=== PATIENT | male | born 1995 | race Caucasian/White ===

== ENCOUNTER 2017-02-16 20:22 | Inpatient (IN) | payer OTHER ==
[~2017-02-16] VITALS: Ht 175.3 cm; Wt 61.2 kg
[~2017-02-16 20:22] MED LIST: BUPR-51 PO; BUPR300T54 PO; EMTR1TAB12 PO; Fluoxetine Hcl PO; Gabapentin PO; HYDR-3895 PO; QUET200T PO
--- NOTE | 2017-02-17 00:50 | NUR ---
ADMISSION Patient is a 21-year old, male, admitted and escorted by [facility] at 0045 to unit. Patient lives in an apartment be herself in [place], [place]. Pt is originally from [place]. Skin check done, no open skin noted. No edema noted. Pt is ambulatory with steady gait. Pt stands 5'9" and weighs 135 pounds per standing scale. Vital signs are as follows: BP-97/48, T-98.3, P-71, RR-18 and SPO2 on EY=713%. Patient is AAOx4 and with no anxiety noted at this time. Lung sounds clear bilaterally upon auscultation. No cough noted and bowel sounds are present on all quadrants. PERRLA and pupils are 5 mm upon visual check. Pt reports being allergic to Naloxone, Laundry Detergent, on Regular Diet and is Full Code. Pt denies any seizure history. Per pt, withdrawal symptoms are nausea and vomiting, runny nose, sweats, chills, tremors, yawning, anxiety, depression, goosebumps Substance history as follows: 1) Heroin: Per pt, started at age 20 and for the past 2 weeks was using 1.5 to 2 gms via IV daily. Last use was 02/15/2017 at 2000, 2 gms IV. 2) Xanax: Per pt, started at age 16 and for the past 5 years was using 22 gms PO daily on average. Per pt, he was trying to cut down on taking Xanax and last use was on 01/26/2017, 10 PO. 3) Methamphetamine: Per pt, started at age17 and for the past 2 weeks was using 3 gms via IV daily. Last use was 02/15/2017 at 2000. 4) Cannabis: Per pt, started at age 16 and for the past 5 years was using 1 joint smoked weekly on average. Last use was 02/15/2017, 1 joint. Patient verbalized the he does not drink alcohol. Patient informed PMHx of Anxiety, Depression, ADHD and 1 Suicide Attempt in 2013. No Suicidal Ideation nor Homicidal Ideation at this time. Suicide Risk Lethality Assessment was done. No PCP nor Psych MD per pt. Home medications mentioned were reconciled. Treatment history as follows: 1) [facility] 01/13/2017 to 01/26/2017 2) [facility] 12/30/2016, went AMA 3) [facility] 10/09/2016 to 11/29/2016 4) [facility] 11/06/2016 to 11/09/2016 5) [facility] (05/2016 and 08/2016) and [facility] 08/2016 6) [facility] 01/2016 Patient reports smoking cigarettes, specifically Newports, about 1 pack daily. Oriented patient to room and instructed with the use of the call light, placed within reach. Fall, universal, seizure and safety precautions implemented. Kept patient warm, dry and comfortable. No c/o significant pain at this time All needs met. Information relayed to Dr. Potter. Patient refused Flu and Pneumonia vaccines despite explanation of risks and benefits. COWS=5, CIWA=6. Will continue to monitor.
[2017-02-17 01:00] VITALS: BP 97/48
[2017-02-17] MEDS ORDERED: SERT100T PO (01:19)
[2017-02-17] MEDS ORDERED: BUPR300T52 PO (01:19)
[2017-02-17] MEDS ORDERED: QUET100T PO (01:19)
[2017-02-17] MEDS ORDERED: MAG HYDROX/AL HYDROX/SIMETH 30 ML LIQUID UDC PO PRN (02:15)
[2017-02-17] MEDS ORDERED: MAGNESIUM HYDROXIDE 30 ML LIQUID UDC PO PRN (02:15)
[2017-02-17] MEDS ORDERED: BUPRENORPHINE HCL 2 MG TAB.SUBL SL PRN (02:15)
[2017-02-17] MEDS ORDERED: ONDANSETRON ODT 4 MG TAB.RAPDIS SL PRN (02:15)
[2017-02-17] MEDS ORDERED: IBUPROFEN 400 MG TABLET PO PRN (02:15)
[2017-02-17] MEDS ORDERED: DICYCLOMINE HCL 20 MG TABLET PO PRN (02:15)
[2017-02-17] MEDS ORDERED: MIRALAX 17 GM POWD.PACK PO PRN (02:15)
[2017-02-17] MEDS ORDERED: LOPERAMIDE HCL 2 MG CAPSULE PO PRN ×2 (02:15)
[2017-02-17] MEDS ORDERED: diphenhydrAMINE 50 MG CAPSULE PO PRN (02:15)
[2017-02-17] MEDS ORDERED: PROMETHAZINE HCL 25 MG/1 ML VIAL IM PRN (02:15)
[2017-02-17 04:00] VITALS: BP 101/52
--- NOTE | 2017-02-17 07:12 | NUR ---
End of Shift Patient is a 21-year old, male, admitted for Opiate and Meth Dependence. Pt reports using Heroin 1.5-2 gms via IV daily and Meth 3 gms daily via IV daily. Pt also reports using Xanax PO, last use was 10 mg on 01/26/2017, and Cannabis via smoking, 1 joint per week on average. With reported PMHx of Anxiety, Depression, ADHD. Also, with history of suicide attempt (one-time) in 2013. No SI/HI reported at this time. Pt is allergic to Naloxone and Laundry Detergent, on Regular Diet and is Full Code. Pt is AAOx4, no anxiety noted at this time. Pt is ambulatory with steady gait and with no skin issues. Fall, universal, seizure and safety prec in place. Call light within reach. Kept pt warm, dry and comfortable. All needs met. Latest COWS=5, slept for 3 hours . Endorsed to AM shift nurse for continuity of care.
--- NOTE | 2017-02-17 07:45 | NUR ---
START OF SHIFT NOTE: Received report from night clerk nurse. Patient is a 21-year old, male, admitted 02-17-17 for Opiate and Meth dependence. Still awaiting urine for UDS. Pt is on prn's only at this time. Pt is alert and oriented X4. Color good, skin warm and dry. Respirations even and unlabored. Safety precautions observed. Call light within reach. Will continue to monitor.
[2017-02-17 08:36] VITALS: BP 100/60
[2017-02-17] MEDS ORDERED: LORAZEPAM 1 MG TABLET PO PRN ×2 (09:30)
[2017-02-17] MEDS: MULTIVITAMINS,THERAPEUTIC TABLET PO SCH (09:30)
--- NOTE | 2017-02-17 09:44 | NUR ---
VSS Discharge papers signed. Addendum: 02/17/17 at 0945 by ONEL LOUIS RN Please disregard note. Made in error.
--- NOTE | 2017-02-17 09:45 | NUR ---
VSS UDS obtained. COWS 6
[2017-02-17 10:53] LABS: *AMPHETAMINE, URINE NEGATIVE (NEGATIVE); *BARBITURATE, URINE POSITIVE (NEGATIVE); *CANNABINOID, URINE POSITIVE (NEGATIVE); *COCCAINE, URINE NEGATIVE (NEGATIVE); *OPIATE, URINE POSITIVE (NEGATIVE); *PHENCYCLIDINE SCREEN,URINE NEGATIVE (NEGATIVE)
[2017-02-17 12:00] VITALS: BP 112/70
[2017-02-17] MEDS: BUPRENORPHINE HCL 2 MG TAB.SUBL SL SCH ×3 (13:08→20:11)
[2017-02-17] MEDS: DIAZEPAM 10 MG TABLET PO SCH ×2 (13:08→20:10)
--- NOTE | 2017-02-17 13:09 | NUR ---
VSS COWS 12 CIWA 9 Pt c/o anxiety, muscle aches, chills. Pt started on a 4 day Subutex and 4 day Valium tapers.
--- NOTE | 2017-02-17 13:11 | NUR ---
Miralax given prn for constipation.
[2017-02-17 15:03] LABS: BASOPHILS % (AUTO) 0.7 % (0.0-2.0); EOSINOPHILS # (AUTO) 0.1 K/uL (0.0-0.7); EOSINOPHILS % (AUTO) 2.5 % (0.0-7.0); HEMATOCRIT 41.8 % (35.0-45.0); HEMOGLOBIN 14.4 g/dL (11.5-15.5); LYMPHOCYTES # (AUTO) 1.5 K/uL (0.8-4.8); LYMPHOCYTES % (AUTO) 36.2 % (20.5-74.5); MEAN CORPUSCULAR HEMOGLOBIN 31.2 uug (27.0-31.0); MEAN CORPUSCULAR HGB CONC 35 g/dL (32.0-37.0); MEAN CORPUSCULAR VOLUME 90.4 fL (77.0-95.0); MONOCYTES # (AUTO) 0.5 K/uL (0.1-1.30); MONOCYTES % (AUTO) 11.3 % (0-11); NEUTROPHILS # (AUTO) 2.2 K/uL (1.8-8.9); NEUTROPHILS % (AUTO) 49.3 % (31.5-64.5); PLATELET COUNT (AUTO) 293 K/uL (150-450); RED BLOOD CELL COUNT(AUTO) 4.63 MIL/uL (3.90-5.30); RED CELL DISTRIBUTION WIDTH 12.3 % (11.5-14.5); WHITE BLOOD COUNT (AUTO) 4.3 K/uL (4.5-14.5)
[2017-02-17 15:11] LABS: ALANINE AMINOTRANSFERASE 21 U/L (16-63); ALBUMIN 4.3 g/dL (3.4-5.0); ALKALINE PHOSPHATASE 103 U/L (50-136); AMYLASE 72 U/L (25-115); ASPARTATE AMINOTRANSFERASE 19 U/L (15-37); BILIRUBIN,TOTAL 0.4 mg/dL (0.2-1.0); CALCIUM 8.9 mg/dL (8.5-10.1); CARBON DIOXIDE 30 mmol/L (21-32); CHLORIDE 105 mmol/L (98-107); CREATININE 0.9 mg/dL (0.6-1.3); GFR 109 mL/min (>60); LIPASE 187 U/L (73-393); MAGNESIUM 2.3 mg/dL (1.8-2.4); POTASSIUM 3.8 mmol/L (3.5-5.1); SODIUM SERUM 142 mmol/L (136-145); TOTAL PROTEIN, SERUM 8.1 g/dL (6.4-8.2); UREA NITROGEN, BLOOD 10 mg/dL (7-18)
[2017-02-17] MEDS: buPROPion XL 150 MG TAB.SR.24H PO SCH (15:19)
[2017-02-17] MEDS: GABAPENTIN 300 MG CAPSULE PO SCH ×2 (15:19→20:09)
[2017-02-17 15:22] LABS: THYROID STIMULATING HORMONE 0.283 mIU/mL (0.358-3.740)
[2017-02-17 15:26] LABS: GLUCOSE 52 mg/dL (74-106)
--- NOTE | 2017-02-17 15:34 | NUR ---
Pt's glucose noted to be 52. Pt asymptomatic. Encouraged to drink juice and eat.
[2017-02-17 15:44] LABS: ETHANOL < 3 MG/DL (0-0)
--- NOTE | 2017-02-17 16:12 | NUR ---
VSS CIWA 9 COWS 6 Pt still with anxiety, sweating and muscle aches.
[2017-02-17 16:15] LABS: HIV-1 p24 ANTIGEN NON REACTIVE (NONREACTIVE); HIV-1/2 ANTIBODY NON REACTIVE (NONREACTIVE)
[2017-02-17 17:21] VITALS: BP 104/58
--- NOTE | 2017-02-17 18:44 | NUR ---
END OF SHIFT NOTE: Report given to microbiology manager nurse . Patient is a 21-year old, male, admitted 02-17-17 for Opiate and Meth dependence. Pt placed on 4 day Valium and 4 day Subutex tapers. Pt is alert and oriented X4. Color good, skin warm and dry. Respirations even and unlabored. Vital signs have remained stable throughout shift. Last COWS 6 CIWA 9 @ 1700 Safety precautions observed. Call light within reach.
[2017-02-17 20:00] VITALS: BP 103/57
--- NOTE | 2017-02-17 20:00 | NUR ---
1999 Patient received awake, alert and just returning back to his room # [id number] [facility]. Gait is steady. Patient responds to nurse's greeting with a smile and " Hi, were you my nurse last time?" Patient's color is pink and his skin is warm, dry and intact. Patient is oriented to person, place, day, date, time and his personal situation. Patient's lung sounds are clear bilaterally and active bowel sounds are noted X 4 abdominal Quads, per auscultation. Patient states that he is eating and taking fluids ad [place] and going to groups since being admitted. Vital signs are: 97.9-84-16 103/57, O2 Sat 99%, COWS 6, CIWA 5. Patient moves all his extremities fully WNL. Patient was admitted early 02/17/17 for: Heroin, Meth, Xanax and Cannabis withdrawal and he is currently on a 4-Day Subutex medication taper and a 4-Day Subutex medication taper, which he is tolerating well so far. Fall/Seizure precautions continue. No requests or complaints offered presently. Bed is locked and in lowest position, bed rails are up X 2 and call light within patient's easy reach.
[2017-02-17] MEDS: QUETIAPINE FUMARATE 200 MG TABLET PO SCH (20:09)
[2017-02-17] MEDS: METHOCARBAMOL 750 MG TABLET PO PRN (20:15)
[2017-02-17] MEDS: ACETAMINOPHEN 325 MG TABLET PO PRN (20:15)
--- NOTE | 2017-02-17 20:15 | NUR ---
PRN MEDICATIONS: Prn Tylenol 650 mg p.o. given for c/o headache and Prn Robaxin 750 mg p.o. given for c/o generalized body aches and pains. 7/10 pain scale.
--- NOTE | 2017-02-17 21:15 | NUR ---
REASSESSMENT PRN MEDICATIONS: Patient is resting quietly. Patient states that medication given to him was effective and he is feeling 'better now'.
[2017-02-18] VITALS: BP 106/66
--- NOTE | 2017-02-18 04:00 | NUR ---
Patient refused V/S, COWS, CIWA to be done at this time.
--- NOTE | 2017-02-18 06:30 | NUR ---
0630 Patient slept a total of 6 hours and he had 1 void and no stools at bathroom. Total intake was 796 ml p.o. Prn medications given noted separately per floor protocol. V/SS afebrile, COWS 6, CIWA 5. Patient is friendly, cooperative and verbally appropriate when awake, though he is guarded and slightly withdrawn with communicating with staff. Patient is presently sleeping soundly with eyes closed and respirations even, unlabored at 14. Patient is in stable condition at this time.
--- NOTE | 2017-02-18 07:46 | NUR ---
BEGINNING OF SHIFT Patient endorsement report received from operations supervisor 2nd shift nurse, all pertinent information discussed. patient is a 21 year old male admitted on 02/17/2017, full code, allergies to: laundry detergent and naloxone, with admitting Dx: bzo/opiate dependence. Patient with substance use history of: heroin 1.5-2 grams iv daily for one year, Xanax 22mg Po daily for 5 years, methamphetamine 3 grams iv daily for 4 years, cannabis 1 joint weekly for 5 years. Patient was placed on a 4 day Valium and 4 day Subutex taper as ordered, Patient received awake, alert and oriented x4, educated regarding plan of care for the day and medication with regimen with good verbal understanding. safety measures in place. call light with in reach, will construes to monitor closely.
[2017-02-18 08:08] VITALS: BP 111/68
[2017-02-18] MEDS: DOCUSATE SODIUM 250 MG CAPSULE PO SCH (08:48)
[2017-02-18] MEDS: buPROPion XL 150 MG TAB.SR.24H PO SCH (08:48)
[2017-02-18] MEDS: GABAPENTIN 300 MG CAPSULE PO SCH ×3 (08:48→21:01)
[2017-02-18] MEDS: MULTIVITAMINS,THERAPEUTIC TABLET PO SCH (08:48)
[2017-02-18] MEDS: DIAZEPAM 5 MG TABLET PO SCH ×4 (08:48→21:01)
[2017-02-18] MEDS ORDERED: TUBERCULIN,PURIF.PROT.DERIV. 5 TU/0.1 ML TEST ID ONE (09:00)
[2017-02-18] MEDS ORDERED: BUPRENORPHINE HCL 2 MG TAB.SUBL SL SCH ×2 (09:00→15:00)
[2017-02-18] MEDS ORDERED: PATIENT MAY USE OWN MED- MD OK PO SCH (09:00)
[2017-02-18] MEDS: METHOCARBAMOL 750 MG TABLET PO PRN ×2 (09:02→21:02)
--- NOTE | 2017-02-18 09:03 | NUR ---
PRN ROBAXIN Patient c/o muscle aches 05/08, administered Robaxin 750mg Po as ordered for muscle aches, will monitor effectiveness.
--- NOTE | 2017-02-18 10:03 | NUR ---
ROBAXIN REASSESSMENT Patient reports medication with some relief, current pain level 2/10 (muscle aches) provided with non pharmacological interventions, will continue to monitor closely.
[2017-02-18] MEDS ORDERED: BUPRENORPHINE HCL 2 MG TAB.SUBL SL ONE (11:00)
[2017-02-18 13:16] VITALS: BP 116/66
[2017-02-18 14:07] LABS: HCV AB <0.1 s/co ratio (0.0-0.9); HEPATITIS B CORE AB, IgM Negative (Negative); HEPATITIS B SURFACE AG Negative (Negative)
[2017-02-18 15:13] VITALS: BP 118/68
[2017-02-18] MEDS: BUPRENORPHINE HCL 2 MG TAB.SUBL SL SCH ×2 (15:20→21:01)
[2017-02-18 16:17] VITALS: BP 116/72
--- NOTE | 2017-02-18 18:56 | NUR ---
END OF SHIFT Patient alert and oriented x4, compliant with therapeutic plan of care, vital signs with in normal limits during shift. Patient continues on Subutex and Valium taper as ordered, well tolerated, no ASE. Patient with admitting Dx: opiate/bzo dependence. 0900 assessment patient presented with:observable moist, mild bone and joint aches, nasal stuffy, nausea with no vomiting, yawning, mild anxiety, mild agitation, and gooseflesh with cow score of: 12 and ciwa score of: 7, patient offered anti-nausea medication and refused. 1300 assessment patient presented with: observable moist, mild bone and joint aches, nasal stuffiness, nausea, yawning, mild anxiety and mild agitation and gooseflesh with cow score of: 10 and ciwa score of: 5; 1700 assessment patient presented with: observable moist, mild bone and joint aches, nasal stuffiness, nausea, yawning, mild anxiety and mild agitation and gooseflesh with cow score of: 10 and ciwa score of: 5. Detox medication at reducing withdrawal symptoms as evident by decrease in cow and ciwa scores. Patient encouraged to attend group therapies/sessions to learn new coping skills to prevent relapse, denies any SI/HI. Patient was administered PRN: Robaxin at 0903, medication effective one hour post administration. Also administered a one time dose of Subutex at 1121, per MD orders. Patient encouraged increase in PO fluid intake as tolerated. Patients abdomen is soft and non distended, bowel sounds heard in all quadrats. no episodes of V/D noted. Safety measures in place. call light with in reach, patient endorsed to assistant shift supervisor nurse, all pertinent information discussed.
[2017-02-18 20:00] VITALS: BP 126/81
--- NOTE | 2017-02-18 20:00 | NUR ---
1999 Patient received awake, alert and just returning to his room # 310 from [facility] group in recreation room. Gait is steady. Upon seeing nurse enter his room, patient tells nurse, " I've really been going through it today. It was really a rough day." Patient encouraged to ventilate his feelings, however patient did not wish to do this at this time. Patient is oriented to person, place, day, date, time and his personal situation. Patient's color is pink and his skin is warm, dry and intact. Lung sounds are clear bilaterally per auscultation. Patient states that he is attending groups consistently and eating and taking fluids ad [place]in with no real gastric issues at this time. Patient states that overall, " after I missed a dose of my morning medications today, I haven't really been feeling that good. I've having lots of anxiety and I feel jumpy" Vital signs are: 97.6-88-16 126/81, O2 Sat 97%, COWS 8, CIWA 5. Patient moves all his extremities fully WNL. Patient was admitted on 02/17/17 for: Heroin, Xanax, Meth and Cannabis withdrawal and he is currently on a 4-Day Valium medication taper and a 4-Day Subutex medication taper, which he is apparently tolerating well so far. Fall/Seizure precautions continue. Bed is locked and in lowest position, bed rails X 2 and call light within patient's easy reach.
[2017-02-18] MEDS: QUETIAPINE FUMARATE 200 MG TABLET PO SCH (21:00)
[2017-02-18] MEDS: CLONIDINE HCL 0.1 MG TABLET PO PRN (21:02)
--- NOTE | 2017-02-18 21:02 | NUR ---
PRN MEDICATIONS: Prn Robaxin 750 mg p.o. given per request for c/o generalized muscles aches and pains (7/10 pain scale) and Prn Catapres 0.1 mg p.o. given per c/o; hot/cool skin flashes, restlessness and increasing anxiety and agitation. COWS 8, CIWA 5.
[2017-02-18] MEDS ORDERED: DIAZEPAM 10 MG TABLET PO ONE (22:00)
--- NOTE | 2017-02-18 22:02 | NUR ---
REASSESSMENT PRN MEDICATIONS: Patient is downstairs on hospital patio with staff and other patients.
--- NOTE | 2017-02-18 22:12 | NUR ---
ONE TIME DOSE: Valium 10 mg p.o. given to patient per Dr. Potter, after spoke with patient, while was conducting patient rounds on floor.
--- NOTE | 2017-02-18 23:12 | NUR ---
REASSESSMENT ONE TIME MED: Patient is awake, alert, fully oriented and has been going back and forth from [facility] to hospital patio, while talking to and socialising with other selected patients. Patient is on the patio at this time.
[2017-02-19] VITALS: BP 118/78
[2017-02-19] MEDS: QUETIAPINE FUMARATE 200 MG TABLET PO SCH ×2 (01:58→21:22)
[2017-02-19] MEDS: HYDROXYZINE PAMOATE 25 MG CAPSULE PO PRN ×2 (01:59→18:36)
--- NOTE | 2017-02-19 01:59 | NUR ---
PRN MEDICATION: Prn Vistaril 50 mg p.o. given per patient's c/o anxiety and restlessness.
--- NOTE | 2017-02-19 02:59 | NUR ---
REASSESSMENT PRN MEDICATION: Patient is resting comfortably with eyes closed and respirations even, quiet and unlabored at 14.
--- NOTE | 2017-02-19 04:00 | NUR ---
Patient sleeping and he refused V/S, COWS, CIWA to be done at this time.
--- NOTE | 2017-02-19 06:30 | NUR ---
0630 Patient had a restless, anxious night, despite multiple Prn medications. Patient had to be frequently encouraged and prompted to try to stay in his bed, with lights and television off for quiet environment. Patient up several times to go downstairs to hospital patio to smoke with selected other patients. Patient slept a total of 3 hours and he was up to the bathroom for 3 voids and no stools. Total intake was 1,200 ml p.o. Prn medications given noted separately per floor protocol. V/SS afebrile, CIWA 5, COWS 8. Patient is cooperative and verbally appropriate when awake, though he presents, easily distracted, anxious and mentally preoccupied most of the time. Patient is presently sleeping with eyes closed and respirations quiet, regular and unlabored at 14.
--- NOTE | 2017-02-19 07:00 | NUR ---
Start of Shift Notes: Received patient in his room. Alert and oriented x 4. Verbally responsive. Able to make his needs known. Respirations even and unlabored. No SOB noted. Skin warm and dry to touch. Abdomen soft and non-distended. BS (+) in all 4 quadrants. No complains of N/V/D or constipation noted. Bladder non-distended. Voids independently with no complains of dysuria. Ambulatory ad [place] with steady gait. Patient is a 21 year old male admitted for opiate and BZO dependence who was placed on a 4-day Valium and 4-day Subutex taper as ordered. No adverse reactions noted. Has past medical hx of anxiety, depression, ADHD. FULL CODE. Regular diet. Allergic to naloxone and laundry detergents. On fall and seizure precautions. Educated patient on his current plan of care for the day and his medication regimen. Encouraged oral fluid intake and encouraged group participation to learn new skills to prevent relapse. Will continue to monitor closely.
[2017-02-19 07:59] LABS: HEMATOCRIT 39.2 % (35.0-45.0); HEMOGLOBIN 13.1 g/dL (11.5-15.5); MEAN CORPUSCULAR HEMOGLOBIN 30.9 uug (27.0-31.0); MEAN CORPUSCULAR HGB CONC 34 g/dL (32.0-37.0); MEAN CORPUSCULAR VOLUME 92.1 fL (77.0-95.0); PLATELET COUNT (AUTO) 220 K/uL (150-450); RED BLOOD CELL COUNT(AUTO) 4.25 MIL/uL (3.90-5.30); RED CELL DISTRIBUTION WIDTH 12.3 % (11.5-14.5); WHITE BLOOD COUNT (AUTO) 4.3 K/uL (4.5-14.5)
[2017-02-19 08:15] LABS: THYROID STIMULATING HORMONE 2.47 mIU/mL (0.358-3.740)
[2017-02-19 08:21] LABS: CALCIUM 8.5 mg/dL (8.5-10.1); CREATININE 0.9 mg/dL (0.6-1.3); POTASSIUM 4.1 mmol/L (3.5-5.1)
[2017-02-19 08:24] LABS: FOLIC ACID 8.8 NG/ML (8.6-58.9)
[2017-02-19] MEDS: buPROPion XL 150 MG TAB.SR.24H PO SCH (08:26)
[2017-02-19] MEDS: DIAZEPAM 5 MG TABLET PO SCH ×3 (08:27→21:22)
[2017-02-19] MEDS: GABAPENTIN 300 MG CAPSULE PO SCH ×3 (08:27→21:22)
[2017-02-19] MEDS: DOCUSATE SODIUM 250 MG CAPSULE PO SCH (08:27)
[2017-02-19] MEDS: MULTIVITAMINS,THERAPEUTIC TABLET PO SCH (08:27)
[2017-02-19] MEDS ORDERED: BUPRENORPHINE HCL 2 MG TAB.SUBL SL SCH ×2 (09:00)
[2017-02-19 10:09] VITALS: BP 108/63
[2017-02-19 11:08] LABS: BASOPHILS % (AUTO) 0.6 % (0.0-2.0); EOSINOPHILS # (AUTO) 0.2 K/uL (0.0-0.7); EOSINOPHILS % (AUTO) 3.9 % (0.0-7.0); LYMPHOCYTES % (AUTO) 46.5 % (20.5-74.5); MONOCYTES # (AUTO) 0.5 K/uL (0.1-1.30); MONOCYTES % (AUTO) 11.6 % (0-11); NEUTROPHILS # (AUTO) 1.6 K/uL (1.8-8.9); NEUTROPHILS % (AUTO) 37.4 % (31.5-64.5)
[2017-02-19 12:00] VITALS: BP 127/85
[2017-02-19] MEDS: METHOCARBAMOL 750 MG TABLET PO PRN ×2 (13:15→21:24)
[2017-02-19] MEDS: CLONIDINE HCL 0.1 MG TABLET PO PRN (13:15)
--- NOTE | 2017-02-19 13:15 | NUR ---
PRN Clonidine 0.1mg PO and Robaxin 750mg PO given: Patient complained of 6/10 generalized body pain, appears agitated and anxious. BP 120/85. Medicated patient with Clonidine 0.1mg PO and Robaxin 750 mg PO as ordered. Will monitor for effectiveness.
--- NOTE | 2017-02-19 14:15 | NUR ---
Re-assessment: Per patient, PRN Robaxin and Clonidine were effective in reducing patient's muscle aches, anxiety, agitation and chills.
[2017-02-19] MEDS: BUPRENORPHINE HCL 2 MG TAB.SUBL SL SCH ×2 (14:37→21:23)
[2017-02-19 16:00] VITALS: BP 119/70
[2017-02-19] MEDS ORDERED: EMTRICITABINE/TENOFOVIR TABLET PO SCH (16:30)
[2017-02-19] MEDS ORDERED: EMTRICITABINE 200 MG CAPSULE PO SCH (16:45)
[2017-02-19] MEDS ORDERED: TENOFOVIR DISOPROXIL FUMARATE 300 MG TABLET PO SCH (16:45)
[2017-02-19] MEDS: QUETIAPINE FUMARATE 25 MG TABLET PO PRN (18:36)
--- NOTE | 2017-02-19 18:38 | NUR ---
Vistaril 50/Seroquel 25 mg PO and Motrin PO given: Patient noted wtih complain of anxiety and noted with increase in agitation, throwing things around the room or banging the door. Medicated patient with Vistaril 50, Seroquel 25 and Motrin 400 mg PO. Will monitor for effectiveness.
--- NOTE | 2017-02-19 19:05 | NUR ---
Start of Shift Patient Received. Patient is in activities room participating in group activities. Patient is a 21 year old male, admitted on 02/17/17 for Opiates and Benzo Dependence, under the care of Dr. Potter, currently receiving 4 day Valium and 4 day Subutex tapers. Patient verbalizes allergies to Naloxone and Laundry Detergent, wishes to be full code, following a regular diet, fall and seizure precautions, and skin noted intact. Past Medical History noted as Anxiety, Depression with suicide attempt x1 in 2013, ADHD. Per endorsement, patient noted to be emotional, fixed on his medications, and requesting medication throughout the morning. Patient was given PRN Vistaril, Motrin, and Seroquel prior to arrival. Will assess patient for effectiveness. All needs attended to promptly. Will continue plan of care as ordered.
--- NOTE | 2017-02-19 19:31 | NUR ---
End of Shift Notes: Patient is a 21 year old male admitted for opiate and BZO dependence who was placed on a 4-day Valium and 4-day Subutex taper as ordered. No adverse reactions noted. Has past medical hx of anxiety, depression and ADHD. Prior to admission, patient was using 1.5 to 2 grams of Heroin IV, 22 mg of Xanax, 3 grams of IV, 1 joint of cannabis weekly. Allergic to Narcan and laundry detergent. FULL CODE. Regular diet. On fall and seizure precautions. VS monitored q 4 hours. No significant abnormalities noted in the patients VS. Withdrawal symptoms were closely monitored. Initial COWS 3, CIWA 4. Patient presented with anxiety, agitation, chills, hot flashes, muscle aches and bone/joint aches. Last COWS 2/CIWA 4. Patient appears to be emotionally labile during the day. At times, would request for more meds despite education of medication regimen and schedule. Medicated patient with Clonidine 0.1mg PO and Robaxin at 1315 with help after 1 hour. Vistaril 50, Seroquel 25 and Motrin 400 mg PO was also given at 1836 due to headache, anxiety, and agitation. Unable to participate in group and therapy sessions due to his withdrawal symptoms. Safety measures in place at all times. Constant redirection and reassurance was provided. All needs met and attended. Will continue to monitor closely.
--- NOTE | 2017-02-19 20:15 | NUR ---
PRN Medication Reassessment Patient was PRN Vistaril, Motrin, and Seroquel prior to arrival. Patient able to verbalize that PRN Medications administered were able to assist in minimizing signs and symptoms. But Patient again noted to request for more medications. Patient verbalizing "I need DrWallace to increase my dosages of Valium and Subutex. But instead he is lowering them too quickly." Reeducated patient on medication tapers. Patient verbalized understanding. Encouraged patient to possibly shower or go outside for fresh air. patient verbalized understanding and complied.
[2017-02-19 20:40] VITALS: BP 138/74
--- NOTE | 2017-02-19 21:24 | NUR ---
PRN Medication Administration patient verbalized increased lower back spasms due to withdrawal. PRN Robaxin given with routine medications. Patient able to tolerate well. Will continue to monitor for effectiveness.
--- NOTE | 2017-02-19 23:00 | NUR ---
PRN Medication Reassessment Patient noted in bed sleeping. Breathing even and non labored. No signs of pain or discomfort noted. PRN Robaxin noted to be effective. Will continue to monitor.
--- NOTE | 2017-02-20 | NUR ---
COWS, CIWA, and Vitals Patient Refused 0000 Vitals prior to bed and verbalized "if im sleeping then skip them." Patient noted in his bed sleeping. Breathing even and non labored. No signs of pain or discomfort noted. Patient respirations noted at 14. CIWA and COWS not able to be completed as per order. Will continue to monitor. Addendum: 02/20/17 at 0322 by PANTERA BURKETT LVN Amended: Links added.
--- NOTE | 2017-02-20 04:29 | NUR ---
COWS, CIWA, and Vitals Patient Refused 0400 Vitals prior to bed and verbalized "if im sleeping then skip them." Patient noted in his bed sleeping. Breathing even and non labored. No signs of pain or discomfort noted. Patient respirations noted at 14. CIWA and COWS not able to be completed as per order. Will continue to monitor. Addendum: 02/20/17 at 0430 by PANTERA BURKETT LVN Amended: Links added.
--- NOTE | 2017-02-20 07:04 | NUR ---
End of Shift Patient is in bed sleeping. Breathing even and non labored. No signs of pain or discomfort noted. Patient is a 21 year old male, admitted on 02/17/17 for Opiates and Benzo Dependence, under the care of Dr. Potter, currently receiving 4 day Valium and 4 day Subutex tapers. Patient verbalizes allergies to Naloxone and Laundry Detergent, wishes to be full code, following a regular diet, fall and seizure precautions, and skin noted intact. Past Medical History noted as Anxiety, Depression with suicide attempt x1 in 2013, ADHD. Patient continues to be fixed on medications and requesting additional doses of taper medication. Patient was given PRN Robaxin and medication noted to be effective. No suicidal ideations noted. All needs attended to promptly. Will endorse to continue plan of care as ordered.
--- NOTE | 2017-02-20 07:45 | NUR ---
START OF SHIFT NOTE: Received report from night club manager nurse. Patient is a 21 year old male, admitted on 02/17/17 for Opiates and Benzo Dependence. Pt is on a 4 day Valium and 4 day Subutex tapers. Tolerating well. Pt is alert and oriented X4. Color good, skin warm and dry. Respirations even and unlabored. Safety precautions observed. Call light within reach. Will continue to monitor.
[2017-02-20 08:00] VITALS: BP 101/60
[2017-02-20] MEDS ORDERED: BUPRENORPHINE HCL 2 MG TAB.SUBL SL SCH (09:00)
[2017-02-20] MEDS: BUPRENORPHINE HCL 2 MG TAB.SUBL SL SCH ×3 (09:42→21:43)
[2017-02-20] MEDS: buPROPion XL 150 MG TAB.SR.24H PO SCH (09:42)
[2017-02-20] MEDS: DOCUSATE SODIUM 250 MG CAPSULE PO SCH (09:42)
[2017-02-20] MEDS: MULTIVITAMINS,THERAPEUTIC TABLET PO SCH (09:42)
[2017-02-20] MEDS: GABAPENTIN 300 MG CAPSULE PO SCH ×2 (09:42→14:32)
[2017-02-20] MEDS: DIAZEPAM 5 MG TABLET PO SCH ×2 (09:42→21:42)
[2017-02-20] MEDS: PATIENT MAY USE OWN MED- MD OK PO SCH (09:43)
--- NOTE | 2017-02-20 09:46 | NUR ---
VSS COWS 6 CIWA 7 Pt c/o sweating, muscle aches, anxiety.
[2017-02-20] MEDS: METHOCARBAMOL 750 MG TABLET PO PRN (12:17)
--- NOTE | 2017-02-20 12:20 | NUR ---
Pt c/o muscle aches and stomach pain. Bentyl 20mg and Robaxin 750mg po prn given
[2017-02-20 12:41] VITALS: BP 118/63
[2017-02-20] MEDS ORDERED: DIAZEPAM 5 MG TABLET PO ONE (13:00)
--- NOTE | 2017-02-20 13:00 | NUR ---
Pt states Baclofen prn helped with stomach pain.
--- NOTE | 2017-02-20 13:30 | NUR ---
CIWA 9 Extra dose of Valium 5mg po X1 given
--- NOTE | 2017-02-20 14:24 | NUR ---
CIWA 6 after extra dose of Valium. Feels improved
--- NOTE | 2017-02-20 14:33 | NUR ---
COWS 8 c/o anxiety, tremors and muscle aches.
--- NOTE | 2017-02-20 14:36 | NUR ---
Seroquel 25mg po prn given for anxiety
[2017-02-20] MEDS: QUETIAPINE FUMARATE 25 MG TABLET PO PRN (14:40)
--- NOTE | 2017-02-20 15:30 | NUR ---
Pt states feels less anxious after Seroquel 25mg po prn
[2017-02-20 18:41] VITALS: BP 118/63
--- NOTE | 2017-02-20 18:53 | NUR ---
END OF SHIFT NOTE: Report given to oil and gas superintendent nurse. Patient is a 21 year old male, admitted on 02/17/17 for Opiates and Benzo Dependence. Pt is on a 4 day Valium and 4 day Subutex tapers. Tolerating well. Pt is alert and oriented X4. Color good, skin warm and dry. Respirations even and unlabored. Vital signs have remained stable throughout shift. Patient received Baclofen 20mg and Robaxin 750mg po prn @ 1215. Pt received an extra dose of Valium 5mg po @ 1300. Also received Seroquel 25 mg po prn @ 1400. Last COWS 8 CIWA 6 @ 1400. Safety precautions observed. Call light within reach.
--- NOTE | 2017-02-20 19:30 | NUR ---
START OF SHIFT :- Patient is a 21 year old male, admitted on 02/17/17 for Opiates and Benzo Dependence. Pt is on a 4 day Valium and 4 day Subutex tapers. Tolerating well. Pt is alert and oriented X4. PMH of anxiety,depression,bipolar disorder and ADHD.Skin warm and dry. Allergic to naloxone and laundry detergent. Respirations even and unlabored. Vital signs are stable. Last COWS 8 CIWA 6. Pt received resting in bed. Safety precautions observed at all times. Bed in lowest position, side rails up x2, call-light within reach. Will continue to monitor.
[2017-02-20 20:00] VITALS: BP 141/76
[2017-02-20] MEDS ORDERED: GABAPENTIN 300 MG CAPSULE PO SCH (21:00)
[2017-02-20] MEDS ORDERED: GABAPENTIN 300 MG CAPSULE PO ONE (21:00)
[2017-02-20] MEDS ORDERED: GABAPENTIN 400 MG CAPSULE PO ONE (21:00)
[2017-02-20] MEDS: DICYCLOMINE HCL 20 MG TABLET PO SCH (21:40)
[2017-02-20] MEDS: GABAPENTIN 400 MG CAPSULE PO SCH (21:41)
[2017-02-20] MEDS: QUETIAPINE FUMARATE 200 MG TABLET PO SCH (21:41)
--- NOTE | 2017-02-21 | NUR ---
V/S,COWS AND CIWA REFUSED-- PT OBSERVED RESTING IN BED WITH EYES CLOSED.BREATHING IS EVEN AND NON LABORED.NO S/S OF DISTRESS NOTED.PT REQUESTED NOT TO BE WOKEN UP FOR V/S IF HE IS SLEEPING.WILL CONTINUE TO MONITOR.
[2017-02-21 04:00] VITALS: BP 125/75
[2017-02-21] MEDS: METHOCARBAMOL 750 MG TABLET PO PRN ×2 (04:13→20:54)
[2017-02-21] MEDS: CLONIDINE HCL 0.1 MG TABLET PO PRN (04:13)
[2017-02-21] MEDS: HYDROXYZINE PAMOATE 25 MG CAPSULE PO PRN (04:14)
--- NOTE | 2017-02-21 04:25 | NUR ---
PRN MEDS---- PT WOKE UP C/O "FEELING LIKE SHIT".PT C/O ANXIETY,ACHES AND PAIN,HOT AND COLD FLASHES.PRN MEDS VISTARIL,ROBAXIN AND CLONIDINE GVEN ORDERED,RESPECTIVELY.WILL CONTINUE TO MONITOR.
--- NOTE | 2017-02-21 05:25 | NUR ---
PRN F/U-- PRN MEDS EFFECTIVE.PT RESTING IN BED WITH EYES CLOSED.NO S/S OF DISTRESS NOTED.
--- NOTE | 2017-02-21 06:41 | NUR ---
END OF SHIFT-- Patient is a 21 year old male, admitted on 02/17/17 for Opiates and Benzo Dependence. Pt is on a 4 day Valium and 4 day Subutex tapers. Tolerating well. Pt is alert and oriented X4. Respirations even and unlabored. Vital signs stable. Last COWS 9 CIWA 5 @ 0400 . PRN VISTARIL,ROBAXIN AND CLONIDINE given for withdrawal symptoms.Pt slept 7 hrs,fluid intake was 1420 mls,urine x 3,stool x 1 . Safety precautions observed at all times. Bed in lowest position, side rails up x2, call-light within reach. Will continue to monitor.
--- NOTE | 2017-02-21 07:45 | NUR ---
START OF SHIFT NOTE Received report from night nurse, 21 year old male,admitted for Opiates and Benzo Dependence, Allergic to Naloxone and Laundry Detergent, Full code, Regular diet, fall and seizure precautions. Pt cont with 4 day Valium and 4 day Subutex tapers. Pt reported PMH of Anxiety, Depression with suicide attempt x1 in 2013, ADHD. Pt received PRN Vistaril/Robaxin effective. Pt slept for 7 hours, Last CIWA-5, COWS-9. Upon assessment, pt is alert & oriented x4. No shortness of breath noted. Respiration even & unlabored. Abdomen soft & non-distended. Bowel sounds active in all four quadrants. No nausea/vomiting noted. Patient denies SI/HI. Safety measures in place, Call light within reach. Will cont to monitor.
[2017-02-21 08:00] VITALS: BP 101/64
[2017-02-21] MEDS: CHOLECALCIFEROL 1,000 UNIT TABLET PO SCH (09:00)
[2017-02-21] MEDS ORDERED: DIAZEPAM 2 MG TABLET PO SCH (09:00)
[2017-02-21] MEDS: MULTIVITAMINS,THERAPEUTIC TABLET PO SCH (09:03)
[2017-02-21] MEDS: DICYCLOMINE HCL 20 MG TABLET PO SCH ×3 (09:03→20:51)
[2017-02-21] MEDS: GABAPENTIN 300 MG CAPSULE PO SCH ×2 (09:03→14:06)
[2017-02-21] MEDS: DOCUSATE SODIUM 250 MG CAPSULE PO SCH (09:03)
[2017-02-21] MEDS: PATIENT MAY USE OWN MED- MD OK PO SCH (09:04)
[2017-02-21] MEDS: buPROPion XL 150 MG TAB.SR.24H PO SCH (09:04)
[2017-02-21] MEDS: DIAZEPAM 5 MG TABLET PO SCH ×2 (09:04→20:51)
[2017-02-21] MEDS: BUPRENORPHINE HCL 2 MG TAB.SUBL SL SCH ×2 (09:04→20:52)
[2017-02-21 12:00] VITALS: BP 106/74
[2017-02-21] MEDS ORDERED: BUPRENORPHINE HCL 2 MG TAB.SUBL SL ONE (14:00)
[2017-02-21] MEDS ORDERED: CLONIDINE HCL 0.1 MG TABLET PO ONE (14:00)
--- NOTE | 2017-02-21 14:07 | NUR ---
SUBUTEX X1 DOSE Pt was seen by Dr. Potter pt reported anxiety, chills, tremors, yawning, COWS noted 10. New order received for Subutex 2mg x1 dose, orders entered by MD. administered as ordered. Safety measures in place, call ligth within reach. Will cont to monitor.
--- NOTE | 2017-02-21 14:37 | NUR ---
REASSESSMENT upon reassessment pt reported medication effective, COWS-5. needs met.
[2017-02-21 16:00] VITALS: BP 110/70
--- NOTE | 2017-02-21 19:11 | NUR ---
END OF SHIFT NOTE Gave report to night nurse, 21 year old male, admitted for Opiates and Benzo Dependence. Allergic to Naloxone and Laundry Detergent, Full code, Regular diet, fall and seizure precautions. Pt cont with 4 day Valium and 4 day Subutex tapers. Pt reported PMH of Anxiety, Depression with suicide attempt x1 in 2013, ADHD. Pt received PRN Vistaril/Robaxin effective. Pt received x1 dose of Subutex 2mg/ Clonidine for COWS-10, medication effective with low COWS score noted 5. Pt refused his scheduled morning vitamin-D, offered x3 risk and benefits explained, but pt refused. MD aware. Pt attended groups and activities. Pt's total [id number], voided x4 with x1 BM. Vital signs stable. Safety measures in place, call light within reach. Pt endorsed to night nurse in stable condition.
--- NOTE | 2017-02-21 19:36 | NUR ---
START OF SHIFT NOTE Pt is a 21 y/o male admitted for Heroin, Xanax, Meth, and Cannabis dependence and use. Pt has an allergy to laundry detergent and Naloxone and reported a PMH of anxiety, depression, ADHD, bipolar, and Suicide attempt x 1 (2013). Per day shift nurse pt was placed on a 4 Valium and 4 day Subutex taper and is tolerating medication well with no s/e or a/r reported. Pt labs indicate vitamin D insufficiency, however per day shift nurse pt refused Vitamin D dose during medication pass in the morning. Pt received a x 1 dose of Subutex 2 mg and Clonidine 0.1 mg PO per day shift nurse. Last COW score documented : 4 and last CIWA score documented:4 (1600). At this time pt is calm, cooperative, and compliant with plan of care. Pt denies any pain/discomfort at this time. Pt was encouraged to notify staff of any changes in condition or of any concerns. Pt verbalized an understanding. All safety measures in place; side rails up x2, bed locked and in low position, and call light within reach. Will continue to monitor.
[2017-02-21 20:00] VITALS: BP 98/78
[2017-02-21] MEDS: GABAPENTIN 400 MG CAPSULE PO SCH (20:50)
[2017-02-21] MEDS: ACETAMINOPHEN 325 MG TABLET PO PRN (20:50)
[2017-02-21] MEDS: QUETIAPINE FUMARATE 200 MG TABLET PO SCH (20:51)
--- NOTE | 2017-02-21 20:54 | NUR ---
TYLENOL AND ROBAXIN PRN ADMINISTRATION Pt stated " I have a headache and my whole body is hurting. Can I have something?" Tylenol 650 mg PO PRN and Robaxin 750 mg PO PRN was given. Pt was encouraged to notify staff of any changes in condition or of any concerns. Pt verbalized an understanding. All safety measures in place. Will monitor for effectiveness.
--- NOTE | 2017-02-21 22:00 | NUR ---
TYLENOL AND ROBAXIN PRN REASSESSMENT Pt is asleep in bed with no signs of discomfort/distress noted. Pt's breathing is even and unlabored. Respirations are 12 breaths per minute. PRNS effective. All safety measures in place. Will continue to monitor.
--- NOTE | 2017-02-22 | NUR ---
AVELINO, CIWA, AND VITALS REFUSED Pt refused to be assessed and have vitals taken at this time. Pt was encouraged x 3 with risks and benefits explained, but the pt still refused. All safety measures in place. Will continue to monitor. Addendum: 02/22/17 at 0102 by PAUL CRUM LVN Amended: Links added.
--- NOTE | 2017-02-22 04:00 | NUR ---
COW, CIWA, AND VITALS REFUSED Pt refused to be assessed and have vitals taken at this time. Pt was encouraged x 3 with risks and benefits explained, but the pt still declined. All safety measures in place. Will continue to monitor. Addendum: 02/22/17 at 0530 by PAUL CRUM LVN Amended: Links added.
--- NOTE | 2017-02-22 07:23 | NUR ---
END OF SHIFT NOTE Pt is a 21 y/o male admitted for Heroin, Xanax, Meth, and Cannabis dependence and use. Pt has an allergy to laundry detergent and Naloxone and reported a PMH of anxiety, depression, ADHD, bipolar, and Suicide attempt x 1 (2013). Pt was placed on a 4 Valium and 4 day Subutex taper (day 4) and is tolerating medication well with no s/e or a/r reported. Pt received Robaxin 750 mg PO PRN and Tylenol 650 mg PO PRN during the shift. Last COW: 4 and last CIWA :4 (1999). Pt slept for a total of 9 hours. All safety measures in place; side rails up x2, bed locked and in low position, and call light within reach. Endorsed to the oncoming nurse.
--- NOTE | 2017-02-22 07:41 | NUR ---
BEGINNING OF SHIFT Patient endorsement report received from lieutenant shift supervisor nurse, all pertinent information discussed. patient is a 21 year old male admitted on 02/17/2017, full code, allergies to: laundry detergent and naloxone, with admitting Dx: bzo/opiate dependence. Patient with substance use history of: heroin 1.5-2 grams iv daily for one year, Xanax 22mg Po daily for 5 years, methamphetamine 3 grams iv daily for 4 years, cannabis 1 joint weekly for 5 years. Patient was placed on a 4 day Valium and 4 day Subutex taper as ordered, and is currently on day 4 of taper, as per lieutenant shift supervisor, last cow was 4 and last ciwa was 4, patient received PRN: Tylenol and Robaxin, as per lieutenant shift supervisor medications were effective. Per lieutenant shift supervisor patient slept for 9 hours. Patient received awake, alert and oriented x4, educated regarding plan of care for the day and medication with regimen with good verbal understanding. safety measures in place. call light with in reach, will construes to monitor closely.
[2017-02-22 08:13] VITALS: BP 107/64
[2017-02-22] MEDS: DOCUSATE SODIUM 250 MG CAPSULE PO SCH (09:00)
[2017-02-22] MEDS ORDERED: BUPRENORPHINE HCL 2 MG TAB.SUBL SL SCH (09:00)
[2017-02-22] MEDS: CHOLECALCIFEROL 1,000 UNIT TABLET PO SCH (10:16)
[2017-02-22] MEDS: buPROPion XL 150 MG TAB.SR.24H PO SCH (10:16)
[2017-02-22] MEDS: DICYCLOMINE HCL 20 MG TABLET PO SCH ×3 (10:16→20:55)
[2017-02-22] MEDS: GABAPENTIN 300 MG CAPSULE PO SCH ×2 (10:17→14:26)
[2017-02-22] MEDS: MULTIVITAMINS,THERAPEUTIC TABLET PO SCH (10:17)
[2017-02-22] MEDS: METHOCARBAMOL 750 MG TABLET PO PRN (10:17)
--- NOTE | 2017-02-22 10:17 | NUR ---
PRN ROBAXIN Patient complained of muscle aches 06/07, administered Robaxin as ordered, will monitor effectiveness.
[2017-02-22] MEDS: PATIENT MAY USE OWN MED- MD OK PO SCH (10:19)
[2017-02-22 12:10] VITALS: BP 111/68
--- NOTE | 2017-02-22 12:58 | NUR ---
ABIGAIL REASSESSMENT Patient reports medications effective at reducing muscle aches current pain level is 2/10, tolerable as per patient, will continue to monitor. Addendum: 02/22/17 at 1300 by CARSON DOAN LVN reassessed one hour post administration at 1117
[2017-02-22] MEDS ORDERED: DIAZEPAM 2 MG TABLET PO SCH (15:00)
[2017-02-22 17:20] VITALS: BP 118/70
--- NOTE | 2017-02-22 18:53 | NUR ---
END OF SHIFT Patient alert and oriented x4, compliant with therapeutic plan of care, vital signs with in normal limits during shift. Patient completed Subutex and Valium taper as ordered, well tolerated, no ASE. Patient with admitting Dx: opiate/bzo dependence. Patient is scheduled to be discharged tomorrow at approximately 1500, will continue to monitor closely. 0900 assessment patient presented with:c/o chills, tremors that can be felt but not seen and mild anxiety with cow score of: 3 and ciwa score of: 2; 1300 assessment patient presented with: c/o chills, tremors that can be felt but not seen, and mild anxiety with cow score of: 3 and ciwa score of: 2; 1700 ; 1424 assessment patient presented with moderate anxiety c/o chills, tremors that can be felt with ciwa score of: 5, as per MD orders for Valium dose of 2mg Po as ordered, medication administered as ordered. 1700 assessment patient presented with: mild anxiety and mild agitation with ciwa score of: 2 and cow score of: 2. Detox medication at reducing withdrawal symptoms as evident by decrease in cow and ciwa scores. Patient encouraged to attend group therapies/sessions to learn new coping skills to prevent relapse, denies any SI/HI. Patient was administered PRN: Robaxin at 1017, medication effective one hour post administration. Patient encouraged increase in PO fluid intake as tolerated. Patients abdomen is soft and non distended, bowel sounds heard in all quadrats. no episodes of N/V/D noted. Safety measures in place. call light with in reach, patient endorsed to cage shift manager nurse, all pertinent information discussed.
--- NOTE | 2017-02-22 19:42 | NUR ---
START OF SHIFT NOTE Pt is a 21 y/o male admitted for Heroin, Xanax, Meth, and Cannabis dependence and use. Pt has an allergy to laundry detergent and Naloxone and reported a PMH of anxiety, depression, ADHD, bipolar, and Suicide attempt x 1 (2013). Per day shift nurse pt completed taper and is scheduled for discharge tomorrow. UA is to be collected and sent to the lab for testing. Pt received Robaxin 750 mg PO PRN during the day shift. Last COW score:1 and last CIWA:2 (1600). At this time pt is calm, cooperative, and compliant with plan of care. Pt denies any pain/discomfort at this time. Pt was encouraged to notify staff of any changes in condition or of any concerns. Pt verbalized an understanding. All safety measures in place; side rails up x2, bed locked and in low position, and call light within reach. Will continue to monitor.
[2017-02-22 20:00] VITALS: BP 122/69
[2017-02-22] MEDS: QUETIAPINE FUMARATE 200 MG TABLET PO SCH (20:56)
[2017-02-22] MEDS: GABAPENTIN 400 MG CAPSULE PO SCH (20:56)
--- NOTE | 2017-02-23 | NUR ---
COW, CIWA, AND VITALS REFUSED Pt refused to be assessed and have vitals taken at this time. Pt was encouraged x 3 with risks and benefits explained, but the pt still declined. All safety measures in place. Will continue to monitor. Addendum: 02/23/17 at 0602 by PAUL CRUM LVN Amended: Links added.
--- NOTE | 2017-02-23 07:29 | NUR ---
END OF SHIFT NOTE Pt is a 21 y/o male admitted for Heroin, Xanax, Meth, and Cannabis dependence and use. Pt has an allergy to laundry detergent and Naloxone and reported a PMH of anxiety, depression, ADHD, bipolar, and Suicide attempt x 1 (2013). Pt completed taper and is scheduled for discharge today. UA is to be collected and sent to the lab. Pt didn't receive any PRNS during the shift. Last COW: 2 and last CIWA :2 (1999). Pt slept for a total of 6 hours. All safety measures in place; side rails up x2, bed locked and in low position, and call light within reach. Endorsed to the oncoming nurse.
--- NOTE | 2017-02-23 07:32 | NUR ---
BEGINNING OF SHIFT Patient endorsement report received from shift lab technician nurse, all pertinent information discussed. patient is a 21 year old male admitted on 02/17/2017, full code, allergies to: laundry detergent and naloxone, with admitting Dx: bzo/opiate dependence. Patient with substance use history of: heroin 1.5-2 grams iv daily for one year, Xanax 22mg Po daily for 5 years, methamphetamine 3 grams iv daily for 4 years, cannabis 1 joint weekly for 5 years. Patient was placed on a 4 day Valium and 4 day Subutex taper as ordered, patient completed tapers on 02/22/2017, well tolerated, no ASE noted, as per shift lab technician, last cow was 2 and last ciwa was 2, patient received no PRNs. Per shift lab technician patient slept for 6 hours. Patient received awake, alert and oriented x4, educated regarding plan of care for the day and medication with regimen with good verbal understanding. safety measures in place. Patient is scheduled to discharge today, at approximately 1500, pending urine specimen for UDS. call light with in reach, will continue to monitor closely.
[2017-02-23] MEDS ORDERED: Gabapentin PO ×2 (08:12)
[2017-02-23] MEDS ORDERED: CHOL10002 PO (08:12)
[2017-02-23] MEDS ORDERED: HYDR-3895 PO (08:12)
[2017-02-23] MEDS ORDERED: Docusate Sodium PO (08:12)
[2017-02-23] MEDS ORDERED: DICY20TA28 PO (08:12)
[2017-02-23 08:14] VITALS: BP 115/62
[2017-02-23] MEDS: DOCUSATE SODIUM 250 MG CAPSULE PO SCH (09:00)
[2017-02-23] MEDS: CHOLECALCIFEROL 1,000 UNIT TABLET PO SCH (09:34)
[2017-02-23] MEDS: PATIENT MAY USE OWN MED- MD OK PO SCH (09:34)
[2017-02-23] MEDS: GABAPENTIN 300 MG CAPSULE PO SCH ×2 (09:34→14:42)
[2017-02-23] MEDS: MULTIVITAMINS,THERAPEUTIC TABLET PO SCH (09:35)
[2017-02-23] MEDS: DICYCLOMINE HCL 20 MG TABLET PO SCH ×2 (09:35→14:42)
[2017-02-23] MEDS: buPROPion XL 150 MG TAB.SR.24H PO SCH (09:35)
[2017-02-23 10:03] LABS: *AMPHETAMINE, URINE NEGATIVE (NEGATIVE); *BARBITURATE, URINE POSITIVE (NEGATIVE); *CANNABINOID, URINE NEGATIVE (NEGATIVE); *COCCAINE, URINE NEGATIVE (NEGATIVE); *OPIATE, URINE NEGATIVE (NEGATIVE); *PHENCYCLIDINE SCREEN,URINE NEGATIVE (NEGATIVE)
[2017-02-23 12:16] VITALS: BP 118/72
--- NOTE | 2017-02-23 15:19 | NUR ---
DISCHARGE Patient off the unit at 1519, prior to discharge patient was educated and provided with teaching regarding all discharge instructions with good verbal understanding. Patient noted self motivated towards sobriety, patient discharged to [facility]. patients vital signs were stable prior to discharge. patient with no s/sx of withdrawal. patients prescriptions, home medications and all discharge instructions were placed in personal duffel bag, all scheduled due medications were administered as ordered, patient off the unit at 1519.
== END 2017-02-23 15:19 | DRG 895 ==
LOC: SRC 02-17 00:18
PROVIDERS: ADMIT Internal Medicine; ATTEND Internal Medicine
PROC: HZ2ZZZZ Detoxification Services for Substance Abuse Treatment (ICD-10-PCS; principal; 2017-02-17)
PROC: HZ31ZZZ Individual Counseling for Substance Abuse Treatment, Behavioral (ICD-10-PCS; principal; 2017-02-17)
PROC: HZ41ZZZ Group Counseling for Substance Abuse Treatment, Behavioral (ICD-10-PCS; 2017-02-21)
DX: F13.230 Sedative, hypnotic or anxiolytic dependence with withdrawal, uncomplicated (principal); F33.2 Major depressive disorder, recurrent severe without psychotic features; F11.23 Opioid dependence with withdrawal; Z81.1 Family history of alcohol abuse and dependence; Z81.3 Family history of other psychoactive substance abuse and dependence; F41.9 Anxiety disorder, unspecified; Z91.5 Personal history of self-harm; F17.210 Nicotine dependence, cigarettes, uncomplicated; Z91.410 Personal history of adult physical and sexual abuse; Z87.828 Personal history of other (healed) physical injury and trauma; D72.819 Decreased white blood cell count, unspecified; F15.10 Other stimulant abuse, uncomplicated; F12.90 Cannabis use, unspecified, uncomplicated; E07.81 Sick-euthyroid syndrome; E55.9 Vitamin D deficiency, unspecified
CPT/HCPCS: 36415; 70030-TC; 80307; 80345; 80349; 80361; 82306; 82746; 83690; 83735; 84443; 85025; 86580; 86592; 86705; 86803; 87340; 87806; G6040-TC; J8499; Z7610

== ENCOUNTER 2017-06-08 15:53 | Inpatient (IN) | payer OTHER ==
[~2017-06-08] VITALS: Ht 172.7 cm; Wt 63.5 kg
[~2017-06-08 15:53] MED LIST changes: -BUPR-51 PO; +BUPR300T52 PO; -BUPR300T54 PO; +CHOL10002 PO; +DICY20TA28 PO; +Docusate Sodium PO; -EMTR1TAB12 PO; +EMTR1TAB6 PO; -Fluoxetine Hcl PO; +QUET100T PO; -QUET200T PO
--- NOTE | 2017-06-08 22:00 | NUR ---
PRE-ADMISSION NOTE: Patient assessed in intake office at 2200 on 06/08/2017. Patient is ambulatory with steady gate, stable, alert and oriented x4, speech is clear and soft. Patient states that he is here to safety detox from Xanax and heroin. Patient states that he "relapsed 3 weeks ago", and his substance use has steadily increased since that time. Patient states that his last use was: Heroin IV : "2.5 grams afternoon on 06/07/2017". Xanax PO: "4 mg afternoon on 06/07/2017". Seroquel PO: "100 mg at 2200 on 06/07/2017". Truvada PO: " can't recall amount on 06/02/2017". Patient reports allergies to Laundry detergent, naloxone. COWS 9, CIWA 7. Patient presented with anxiety, agitation, nervousness, tremors, barely sweating, restless legs, mild headache, body aches, and fatigue. Patient denies SI/HI. Patient denies Seizures Hx. VS: T: 98'4; BP: 110/66; HR: 103; RR: 16; O2 SAT: 97%, pain level:"5/10". Patient instructed on unit protocol of vitals Q4H and COWS/CIWA assessments. Patient verbalized understanding and agreement. Patient also instructed on policy regarding destruction of any controlled substances/prescriptions brought to facility, and handling of all medications. Patient verbalized understanding and agreement. Will complete admission assessment when patient is brought up to unit.
[2017-06-08 22:05] VITALS: BP 110/66
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
[2017-06-08 22:26] LABS: *AMPHETAMINE, URINE NEGATIVE (NEGATIVE); *BARBITURATE, URINE POSITIVE (NEGATIVE); *CANNABINOID, URINE POSITIVE (NEGATIVE); *COCCAINE, URINE NEGATIVE (NEGATIVE); *OPIATE, URINE POSITIVE (NEGATIVE); *PHENCYCLIDINE SCREEN,URINE NEGATIVE (NEGATIVE)
[2017-06-08] MEDS ORDERED: LOPERAMIDE HCL 2 MG CAPSULE PO PRN ×2 (22:45)
[2017-06-08] MEDS ORDERED: LORAZEPAM 1 MG TABLET PO PRN ×2 (22:45)
[2017-06-08] MEDS ORDERED: LORAZEPAM 2 MG/1 ML VIAL IM PRN (22:45)
[2017-06-08] MEDS ORDERED: MAGNESIUM HYDROXIDE 30 ML LIQUID UDC PO PRN (22:45)
[2017-06-08] MEDS ORDERED: MAG HYDROX/AL HYDROX/SIMETH 30 ML LIQUID UDC PO PRN (22:45)
[2017-06-08] MEDS ORDERED: diphenhydrAMINE 50 MG CAPSULE PO PRN (22:45)
[2017-06-08] MEDS ORDERED: BUPRENORPHINE HCL 2 MG TAB.SUBL SL PRN (22:45)
[2017-06-08] MEDS ORDERED: ONDANSETRON ODT 4 MG TAB.RAPDIS SL PRN (22:45)
[2017-06-08] MEDS ORDERED: MIRALAX 17 GM POWD.PACK PO PRN (22:45)
[2017-06-08] MEDS ORDERED: ONDANSETRON 4 MG/2 ML VIAL IM PRN (22:45)
[2017-06-08] MEDS ORDERED: ACETAMINOPHEN 325 MG TABLET PO PRN (22:45)
[2017-06-08] MEDS ORDERED: HYDROXYZINE PAMOATE 25 MG CAPSULE PO PRN (22:45)
[2017-06-08] MEDS ORDERED: METHOCARBAMOL 750 MG TABLET PO PRN (22:45)
[2017-06-08] MEDS ORDERED: IBUPROFEN 600 MG TABLET PO PRN (22:45)
[2017-06-08] MEDS ORDERED: DICYCLOMINE HCL 20 MG TABLET PO PRN (22:45)
[2017-06-08 23:29] LABS: ALANINE AMINOTRANSFERASE 23 U/L (16-63); ALKALINE PHOSPHATASE 128 U/L (50-136); ASPARTATE AMINOTRANSFERASE 17 U/L (15-37); BILIRUBIN,TOTAL 0.5 mg/dL (0.2-1.0); CARBON DIOXIDE 34 mmol/L (21-32); CHLORIDE 104 mmol/L (98-107); GLUCOSE 98 mg/dL (74-106); MAGNESIUM 2.1 mg/dL (1.8-2.4); POTASSIUM 3.7 mmol/L (3.5-5.1); TOTAL PROTEIN, SERUM 7.3 g/dL (6.4-8.2); UREA NITROGEN, BLOOD 9 mg/dL (7-18)
--- NOTE | 2017-06-08 23:29 | NUR ---
PRN ATIVAN 1 MG PO 1 TAB PO AND PRN BENADRYL 50 MG 1 CAP PO ADMINISTRATION Patient c/o increased anxiety and insomnia. Patient was assessed. CIWA 7. Patient obviously anxious, agitated, c/o nervousness, tremors, barely sweats, restlessness, body aches, and insomnia. PRN Ativan PO and PRN Benadryl PO discussed. Education provided. Patient was educated for actions, adverse reactions, and side effects of Ativan and Benadryl. Patient returned back knowledge by verbalized understanding. PRN Ativan 1 mg 1 tab PO and PRN Benadryl 50 mg 1 cap PO administrated as ordered with full glass of water. All needs met. Safety measures on place. Call light within reach, bed in lowest position and locked, padded rails up bilaterally rails up bilaterally. Will continue to monitor closely.
[2017-06-08 23:34] LABS: ETHANOL < 3 MG/DL (0-0)
[2017-06-08 23:38] LABS: BASOPHILS % (AUTO) 0.7 % (0.0-2.0); EOSINOPHILS # (AUTO) 0.3 K/uL (0.0-0.7); EOSINOPHILS % (AUTO) 7.5 % (0.0-7.0); HEMATOCRIT 38.9 % (40-50); HEMOGLOBIN 12.9 G/DL (14.0-18.0); LYMPHOCYTES # (AUTO) 1.6 K/UL (0.8-4.8); LYMPHOCYTES % (AUTO) 36.8 % (20.5-74.5); MEAN CORPUSCULAR HEMOGLOBIN 30.2 UUG (27.0-31.0); MEAN CORPUSCULAR HGB CONC 33 g/dL (32.0-37.0); MEAN CORPUSCULAR VOLUME 90.8 FL (82.0-92.0); MONOCYTES # (AUTO) 0.7 K/UL (0.1-1.30); MONOCYTES % (AUTO) 15.5 % (0-11); NEUTROPHILS # (AUTO) 1.9 K/UL (1.8-8.9); NEUTROPHILS % (AUTO) 39.5 % (31.5-64.5); PLATELET COUNT (AUTO) 237 K/UL (150-450); RED BLOOD CELL COUNT(AUTO) 4.28 MIL/UL (4.7-6.1); WHITE BLOOD COUNT (AUTO) 4.5 K/UL (4.0-11.2)
[2017-06-08] MEDS ORDERED: diphenhydrAMINE 50 MG CAPSULE ONE (23:38)
[2017-06-08] MEDS ORDERED: LORAZEPAM 1 MG TABLET ONE (23:39)
[2017-06-08 23:45] LABS: EOSINOPHILS % (MANUAL) 5 % (0-8); LYMPHOCYTES % (MANUAL) 39 % (38-48); MONOCYTES % (MANUAL) 10 % (2-10); NEUTROPHILS % (MANUAL) 46 % (40-55)
[2017-06-09] VITALS: BP 87/49
--- NOTE | 2017-06-09 00:29 | NUR ---
RE-ASSESSMENT Patient is sleeping. RR 14. Respirations are even and unlabored. PRN Ativan PO and PRN Benadryl PO were effective. All needs met. Safety measures on the place: Call light within reach, bed is low position, and locked, side rails up x2. Will continue to monitor closely.
[2017-06-09] MEDS ORDERED: QUET100T PO (01:19)
[2017-06-09] MEDS ORDERED: EMTR1TAB6 PO (01:19)
[2017-06-09 04:00] VITALS: BP 98/46
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
--- NOTE | 2017-06-09 07:06 | NUR ---
Start of Shift Endorsement received from nightshift nurse. Pt is a 21 y/o male admitted for Heroin and Xanax dependence. Pt has been placed on a 5 day Ativan and 5 day Subutex taper. Pt is mildly withdrawing at this time AEB COWS4, CIWA 3. Pt received PRN Subutex, Ativan and Benadryl during nightshift. Pt reports sleeping 7 hours, reports feeling tired. Pt appears to be sleeping at this time, responsive to name and touch. VS WNL. Full Code. Pt is in STABLE condition at this time. Remains compliant with medication and diet regimen. All needs have been met, All safety measures in place per hospital policy. Bed in lowest position, side rails up x2, call-light within reach. Will continue to monitor
[2017-06-09 08:00] VITALS: BP 95/52
[2017-06-09] MEDS: MULTIVITAMINS,THERAPEUTIC TABLET PO SCH (09:00)
[2017-06-09] MEDS: GABAPENTIN 300 MG CAPSULE PO SCH ×3 (09:00→21:57)
[2017-06-09] MEDS: CHOLECALCIFEROL 1,000 UNIT TABLET PO SCH (09:00)
[2017-06-09] MEDS ORDERED: TUBERCULIN,PURIF.PROT.DERIV. 5 TU/0.1 ML TEST ID ONE (09:00)
[2017-06-09] MEDS: LORAZEPAM 1 MG TABLET PO SCH ×4 (09:00→21:57)
[2017-06-09] MEDS ORDERED: PATIENT MAY USE OWN MED- MD OK PO SCH (09:00)
[2017-06-09] MEDS: BUPRENORPHINE HCL 2 MG TAB.SUBL SL SCH ×4 (09:00→21:58)
[2017-06-09] MEDS ORDERED: LORAZEPAM 1 MG TABLET PO ONE (11:30)
[2017-06-09] MEDS ORDERED: BUPRENORPHINE HCL 2 MG TAB.SUBL SL ONE (11:30)
[2017-06-09 12:00] VITALS: BP 115/64
--- NOTE | 2017-06-09 14:47 | NUR ---
Therapist prompted client to attend daily group sessions. Client stated he would make an effort to attend.
[2017-06-09 16:00] VITALS: BP 122/78
[2017-06-09] MEDS: buPROPion XL 150 MG TAB.SR.24H PO SCH (16:50)
[2017-06-09] MEDS ORDERED: QUETIAPINE FUMARATE 100 MG TABLET PO SCH (18:00)
--- NOTE | 2017-06-09 18:45 | NUR ---
End of Shift Endorsement given to nightshift nurse. Pt is a 21 y/o male admitted for Heroin and Xanax dependence. Pt has been placed on a 5 day Ativan and 5 day Subutex taper. Pt is moderately withdrawing at this time AEB COWS10, CIWA 5. Both tapers have been initiated. Pt received one time order of Subutex 4mg and Ativan 2mg per dr. Potter. Pt spent 7-8 hours in his room. PT is tolerating the detox medications. Educated pt on Medication S/E and diet regimen. Intake: 946ml, Void x2, BM x0. VS WNL. Full Code. Pt is in STABLE condition at this time. Remains compliant with medication and diet regimen. All needs have been met, All safety measures in place per hospital policy. Bed in lowest position, side rails up x2, call-light within reach. Will continue to monitor
[2017-06-09 20:00] VITALS: BP 102/65
--- NOTE | 2017-06-09 20:00 | NUR ---
Start of Shift Note: Report received from day shift nurse. Pt is a 21 yo male admitted on 06/08/17 for medically-supervised withdrawal from opiates and benzodiazepines. Pt reported using 2.5gm IV heroin and 8mg Xanax daily for three weeks. Pt is on 5-day Ativan and Subutex tapers. Pt received with last COWS=10, CIWA=5, and no PRNs were given during day shift. Pt is a full code, reports allergy to naloxone and laundry detergent, and is on a regular diet. PMHx: anxiety and depression. Pt received in room and reports anxiety, diaphoresis, pain; pupils 5mm. Bed is in low position and locked, side rails up x2, call light within reach. Will continue to monitor.
[2017-06-09] MEDS: QUETIAPINE FUMARATE 100 MG TABLET PO SCH (21:57)
[2017-06-10] VITALS: BP 103/62
--- NOTE | 2017-06-10 | NUR ---
COWS/CIWA Deferred: COWS/CIWA is deferred for sleep. V/S stable. All safety precautions are in place. Will continue to monitor. Addendum: 06/10/17 at 0034 by LAURY VIZCAINO RN Amended: Links added.
[2017-06-10 04:00] VITALS: BP 92/57
--- NOTE | 2017-06-10 04:00 | NUR ---
COWS and CIWA Deferred: COWS and CIWA are deferred for sleep. V/S stable. All safety precautions are in place. Will continue to monitor. Addendum: 06/10/17 at 0428 by LAURY VIZCAINO RN Amended: Links added.
--- NOTE | 2017-06-10 07:33 | NUR ---
End of Shift Note: Pt is a 21 yo male admitted to [facility] on 06/08/17 for medically-supervised withdrawal from opiates and benzodiazepines. Patient reports PMHx of anxiety and depression. Pt is a full code. Pt reports allergy to naloxone and laundry detergent. Pt is on a regular diet. Pt reported using 2.5gm IV heroin and 8mg Xanax daily for three weeks, and was placed on 5-day Ativan and Subutex tapers. Scheduled medication regime effectively managed s/s of withdrawal this shift, and no PRN medications were necessary. Last COWS=8, CIWA=8 at 20:00.V/S stable throughout shift. Total fluid intake this shift: 1385 ml; output: urine x 2 and BM x 1. Pt is currently in bed and slept 10 hours this shift. All needs attended and met. Pt endorsed to day shift nurse.
[2017-06-10 08:00] VITALS: BP 131/78
--- NOTE | 2017-06-10 08:00 | NUR ---
START OF SHIFT Pt 21 y/o male admitted for benzo opioid dependence. Pt received in room on bed with eyes closed resting, but easily arousable to name. Pt alert and oriented to name, place, and time. Perrla. Skin warm and slightly moist to touch. Respirations even and unlabored. It was reported that pt slept for 10 hours last night. Bed on lowest position with side rails x2 up for safety. Call light within reach. No distress noted at this time.
[2017-06-10] MEDS: GABAPENTIN 300 MG CAPSULE PO SCH ×3 (08:58→21:38)
[2017-06-10] MEDS: buPROPion XL 150 MG TAB.SR.24H PO SCH (08:58)
[2017-06-10] MEDS: BUPRENORPHINE HCL 2 MG TAB.SUBL SL SCH ×3 (08:59→21:38)
[2017-06-10] MEDS: TENOFOVIR DISOPROXIL FUMARATE PO SCH (08:59)
[2017-06-10] MEDS: LORAZEPAM 1 MG TABLET PO SCH ×3 (08:59→21:38)
[2017-06-10] MEDS: CHOLECALCIFEROL 1,000 UNIT TABLET PO SCH (08:59)
[2017-06-10] MEDS: EMTRICITABINE PO SCH (08:59)
[2017-06-10] MEDS: MULTIVITAMINS,THERAPEUTIC TABLET PO SCH (08:59)
[2017-06-10] MEDS ORDERED: PATIENT MAY USE OWN MED- MD OK PO SCH (09:00)
[2017-06-10 13:05] VITALS: BP 129/64
[2017-06-10 14:08] LABS: HEPATITIS B SURFACE AG Negative (Negative)
--- NOTE | 2017-06-10 14:47 | NUR ---
PRN Pt with c/o headache 05/08. Motrin po prn per MD order given and tolerated well.
[2017-06-10] MEDS: CLONIDINE HCL 0.1 MG TABLET PO PRN (15:40)
[2017-06-10] MEDS: HYDROXYZINE PAMOATE 25 MG CAPSULE PO PRN (15:40)
--- NOTE | 2017-06-10 15:40 | NUR ---
PRN Pt states feels anxious. Catapres po prn per MD order given and tolerated well.
--- NOTE | 2017-06-10 15:43 | NUR ---
PRN Pt states he is very anxious. Catapres po prn per MD order given and tolerated well.
--- NOTE | 2017-06-10 15:47 | NUR ---
PRN EVAL Pt states headache 01/08
--- NOTE | 2017-06-10 16:43 | NUR ---
ROSA GIL Pt observed in room on bed watching television.
[2017-06-10 17:00] VITALS: BP 126/89
[2017-06-10] MEDS ORDERED: BUPRENORPHINE HCL 2 MG TAB.SUBL SL ONE (17:00)
--- NOTE | 2017-06-10 17:19 | NUR ---
PRN Pt with c/o loose stool, stomach pacin, body aches, and chills and sweats. cows=9. Dr. Potter made aware with new order for subutex 4 mg po x1 dose noted and carried out.
--- NOTE | 2017-06-10 17:22 | NUR ---
PRN pt with c/o body aches 05/08. Robaxin po prn per MD order given and tolerated well.
--- NOTE | 2017-06-10 17:23 | NUR ---
PRN Pt states had 1 [address] episode[address] Immodium 1 st po prn per MD order given and tolerated well.
--- NOTE | 2017-06-10 18:19 | NUR ---
PRN EVAL cows=3
--- NOTE | 2017-06-10 18:22 | NUR ---
PRN EVAL Pt states body aches 01/08.
--- NOTE | 2017-06-10 18:42 | NUR ---
END OF SHIFT Pt 21 y/o male admitted fo rbenzo and opioid dependence. Pt alert and oriented to name, place, and time. Perrla. Skin warm and slightly moist to touch. Respirtations even and unlabored. Bilateral hand tremors noted slightly. Pt observed mostly in dining room throughout the morning, but then isolative to room in the afternoon. Pt medication compliant and tolerated well. No ASE noted. Pt was seen by Dr. Potter and Dr. Rangel today. Bed on lowest position with side rails x2 up for safety. Call light within reach. No distress noted at tthis time.
[2017-06-10 20:00] VITALS: BP 123/73
--- NOTE | 2017-06-10 20:00 | NUR ---
Start of Shift Note: Report received from day shift nurse. Pt is a 21 Y/O male admitted on 06/08/17 for medically-supervised withdrawal from benzodiazepines and opiates. Pt reported using 8mg Xanax and 2.5gm IV heroin daily for three weeks. Pt continues on 5-day Ativan and Subutex tapers. Pt received with last COWS=7, CIWA=5, and PRNs Motrin, Catapres, Vistaril, Subutex, and Robaxin were given during day shift. Pt reports allergy to naloxone and laundry detergent, is a full code, and is on a regular diet. PMHx: anxiety, depression. Pt received in room and reports diaphoresis, chills, myalgia with severe pain, anxiety, agitation, and headache. Bed is in low position and locked, side rails up x2, call light within reach. Will continue to monitor.
[2017-06-10] MEDS ORDERED: BACLOFEN 20 MG TABLET PO PRN (20:30)
[2017-06-10] MEDS: QUETIAPINE FUMARATE 100 MG TABLET PO SCH (21:37)
--- NOTE | 2017-06-10 21:42 | NUR ---
PRN Baclofen: Patient complains of severe muscle cramps and pain in bilateral legs. Patient rates pain 8/10. Administered PRN Baclofen as ordered. Will continue to monitor.
--- NOTE | 2017-06-10 22:45 | NUR ---
PRN Reassessment: Patient reports that PRN Baclofen was mildly effective in reducing myalgia. Will continue to monitor.
[2017-06-11] VITALS: BP 106/56
--- NOTE | 2017-06-11 | NUR ---
COWS and CIWA Deferred: COWS and CIWA are deferred for sleep. V/S stable. All safety precautions are in place. Will continue to monitor. Addendum: 06/11/17 at 0049 by LAURY VIZCAINO RN Amended: Links added.
[2017-06-11] MEDS: KETOROLAC TROMETHAMINE 30 MG INJ IM PRN ×2 (01:24→22:59)
[2017-06-11] MEDS: CLONIDINE HCL 0.1 MG TABLET PO PRN (01:24)
[2017-06-11] MEDS: HYDROXYZINE PAMOATE 25 MG CAPSULE PO PRN (01:24)
--- NOTE | 2017-06-11 01:25 | NUR ---
PRN's Toradol, Clonidine, and Vistaril: Patient complains of severe pain in bilateral legs. Patient rates pain 9/10. Administered PRN Toradol IM as ordered. Patient complains of severe anxiety and diaphoresis. Administered PRN Clonidine and PRN Vistaril as ordered. Will continue to monitor.
--- NOTE | 2017-06-11 02:25 | NUR ---
PRN Reassessment: Patient is in bed with eyes closed. Respirations are even and unlabored. No s/s of acute distress noted. PRN's Toradol, Vistaril, and Clonidine effective AEB patient's ability to rest. Will continue to monitor.
[2017-06-11 04:00] VITALS: BP 101/64
--- NOTE | 2017-06-11 07:07 | NUR ---
End of Shift Note: Pt is a 21 Y/O male admitted to [facility] on 06/08/17 for medically-supervised withdrawal from opiates and benzodiazepines. Patient reported a PMHx of anxiety and depression. Pt is a full code status, reports allergy to naloxone and laundry detergent, and is on a regular diet. Pt reported using 2.5gm IV heroin and 8mg Xanax daily for three weeks. Pt continues on 5-day Ativan and Subutex tapers. Scheduled medication regime effectively managed s/s of withdrawal this shift, in addition to PRN Baclofen for myalgia, PRN Vistaril for anxiety, PRN Catapres for diaphoresis, and PRN Toradol for pain. Last COWS=6, CIWA=4 at 04:00.V/S stable throughout shift, with tachycardia. Total fluid intake this shift: 1710 ml; output: urine x 1 and BM x 0. Pt is currently in bed and slept 5 hours this shift. All needs attended and met. Pt endorsed to day shift nurse.
--- NOTE | 2017-06-11 07:30 | NUR ---
START OF Shift Pt 21 y/o male admitted for benzo opioid dependence. Pt received in room on bed with eyes closed resting, but easily arousable to name. Pt alert and oriented to name, place, and time. Perrla. Skin warm and slightly moist to touch. Respirations even and unlabored. It was reported that pt slept for 5 hours last night. Pt refused vital signs this morning. Will attempt to take vital signs. Bed on lowest position with side rails x2 up for safety. Call light within reach. No distress noted at this time.
[2017-06-11 08:00] VITALS: BP 102/64
[2017-06-11] MEDS ORDERED: BUPRENORPHINE HCL 2 MG TAB.SUBL SL SCH (09:00)
[2017-06-11] MEDS: GABAPENTIN 300 MG CAPSULE PO SCH ×3 (09:34→20:49)
[2017-06-11] MEDS: LORAZEPAM 1 MG TABLET PO SCH ×4 (09:34→20:49)
[2017-06-11] MEDS: CHOLECALCIFEROL 1,000 UNIT TABLET PO SCH (09:34)
[2017-06-11] MEDS: MULTIVITAMINS,THERAPEUTIC TABLET PO SCH (09:34)
[2017-06-11] MEDS: buPROPion XL 150 MG TAB.SR.24H PO SCH (09:35)
[2017-06-11] MEDS: EMTRICITABINE PO SCH (09:58)
[2017-06-11] MEDS: TENOFOVIR DISOPROXIL FUMARATE PO SCH (09:58)
[2017-06-11 13:38] VITALS: BP 114/59
[2017-06-11] MEDS: BUPRENORPHINE HCL 2 MG TAB.SUBL SL SCH ×2 (14:18→20:49)
[2017-06-11 16:00] VITALS: BP 130/77
--- NOTE | 2017-06-11 18:31 | NUR ---
END OF SHIFT Pt 21 y/o male admitted for benzo and opioid dependence. Pt alert and oriented to name, place, and time. Perrla. Skin warm and slightly moist to touch. Respirations even and unlabored. Bilateral hand tremors noted slightly. Pt observed mostly isolative to room this morning, but was in the dining room throughout the afternoon. Pt medication compliant and tolerated well. No ASE noted. Pt was seen by Dr. Potter and Dr. Pinto today. Bed on lowest position with side rails x2 up for safety. Call light within reach. No distress noted at this time.
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
[2017-06-11 20:00] VITALS: BP 130/79
[2017-06-11] MEDS: BACLOFEN 20 MG TABLET PO SCH (20:49)
[2017-06-11] MEDS: QUETIAPINE FUMARATE 100 MG TABLET PO SCH (20:49)
--- NOTE | 2017-06-11 22:59 | NUR ---
PRN TORADOL (KETOROLAC TROMETHAMINE) IM ADMINISTRATION Patient c/o severe pain in his left leg. Patient was assessed. Pain level: "9/10". Patient described pain as "severe aching". PRN Toradol 30mg/1 ml IM administered to Left Upper Outer Quadrant Dorsogluteal. Patient tolerated well. All needs met Safety measures on place. Call light within reach, bed in lowest position and locked, padded rails up bilaterally rails up bilaterally. Will continue to monitor closely.
--- NOTE | 2017-06-11 23:59 | NUR ---
RE-ASSESSMENT Patient is sleeping. RR 15. Respirations unlabored and even. PRN Toradol IM was effective. All needs met. Safety measures on place. Call light within reach, bed in lowest position and locked, padded rails up bilaterally rails up bilaterally. Will continue to monitor closely.
[2017-06-12] VITALS: BP 118/74
[2017-06-12 04:00] VITALS: BP 114/66
--- NOTE | 2017-06-12 07:05 | NUR ---
Start of Shift Endorsement received from nightshift nurse. Pt is a 21 y/o male admitted for Heroin and Xanax dependence. Pt has been placed on a 5 day Ativan and 5 day Subutex taper. Pt is moderately withdrawing at this time AEB COWS 5, CIWA 3. Pt received PRN Toradol for back pain . Pt reports sleeping 6 hours. Pt appears to be sleeping at this time, responsive to name and touch. VS WNL. Full Code. Pt is in STABLE condition at this time. Remains compliant with medication and diet regimen. All needs have been met, All safety measures in place per hospital policy. Bed in lowest position, side rails up x2, call-light within reach. Will continue to monitor
--- NOTE | 2017-06-12 07:15 | NUR ---
END OF SHIFT NOTE: Patient endorsed to day shift nurse in stable condition. Report given. Patient is a 21 years male admitted to [facility] on 06/08/17 under the care of Doctor Henry Potter MD for Benzodiazepines and Opioid dependence, continue 5 day Ativan and 5 day Subutex Taper since 06/09/2017. Patient reports allergies to Laundry detergent and Naloxone. Patient placed on Full Code, Regular Diet, Fall and Seizures Precautions. Patients denies Seizures Hx r/t withdrawal from substances. History of Substance Use: Heroin IV : "2.5 grams every day last three weeks. Last use afternoon on 06/07/2017". Xanax PO: "4 mg every day last three weeks. Last use afternoon on 06/07/2017". Home Medications: Seroquel PO: "100 mg every day during 1 year. Last use at 2200 on 06/07/2017". Truvada PO: " Patient can't recall amount every day during 1 year. Last use on 06/07/2017". Patient reports smoking 20 cigarettes daily since"2011". Written smoking cessation education provided. PMH: Anxiety, Depression, and Substance abuse. Last COWS decreased from 6 to 5, and CIWA decreased from 5 to 3 at 0400. Last night patient presented with anxiety, agitation, nervousness, tremors, barely sweating, restless legs, mild headache, body aches, and fatigue. VS at 0400: T: 97'9; BP: 114/66; HR: 71; RR: 16; O2 SAT: 98%, pain level:"0/10". Respirations unlabored and even. Patient denies SOB and chest pain. Skin is warm and dry to touch with healed almeida on the right side of the low nose and on the middle of the upper chest. Patient denies SI/HI. Patient Verbalizes understanding. Encouraged fluids as tolerated. PRN Toradol IM administered for severe left leg pain: "9/10" at 2259, and was effective. Patient slept 6 hours, intake 1,490 ml, voided 4. All needs met. Safety measures on place. Call light within reach, bed in lowest position and locked, bed rails up bilaterally.
[2017-06-12 08:00] VITALS: BP 100/50
[2017-06-12] MEDS: TENOFOVIR DISOPROXIL FUMARATE PO SCH (09:48)
[2017-06-12] MEDS: EMTRICITABINE PO SCH (09:48)
[2017-06-12] MEDS: LORAZEPAM 1 MG TABLET PO SCH ×3 (09:49→22:15)
[2017-06-12] MEDS: MULTIVITAMINS,THERAPEUTIC TABLET PO SCH (09:49)
[2017-06-12] MEDS: CHOLECALCIFEROL 1,000 UNIT TABLET PO SCH (09:49)
[2017-06-12] MEDS: buPROPion XL 150 MG TAB.SR.24H PO SCH (09:49)
[2017-06-12] MEDS: BACLOFEN 20 MG TABLET PO SCH ×3 (09:49→22:15)
[2017-06-12] MEDS: GABAPENTIN 300 MG CAPSULE PO SCH ×3 (09:49→22:14)
[2017-06-12] MEDS: BUPRENORPHINE HCL 2 MG TAB.SUBL SL SCH ×3 (09:49→22:15)
[2017-06-12 12:00] VITALS: BP 122/56
[2017-06-12] MEDS: LIDOCAINE 5% PATCH TD SCH ×2 (13:34)
[2017-06-12 16:00] VITALS: BP 129/78
--- NOTE | 2017-06-12 18:52 | NUR ---
End of Shift Endorsement given to nightshift nurse. Pt is a 21 y/o male admitted for Heroin and Xanax dependence. Pt has been placed on a 5 day Ativan and 5 day Subutex taper. Pt is mildly withdrawing at this time AEB COWS 3, CIWA 3. Educated pt on importance of attending groups to develop the necessary tools to succeed on being sober. Encouraged pt to drink more fluids. Pt did not receive any PRN medications. . Intake: 2330ml, Void x4, BM x0. VS WNL. Full Code. Pt is in STABLE condition at this time. Remains compliant with medication and diet regimen. All needs have been met, All safety measures in place per hospital policy. Bed in lowest position, side rails up x2, call-light within reach. Will continue to monitor
--- NOTE | 2017-06-12 19:15 | NUR ---
START OF SHIFT Received 21 year old male patient admitted on 06/08/17 for Opiate and Benzodiazepine dependency. Pt is full code with allergy to naloxone, and laundry detergent. Pt reports PMHx of anxiety, and depression. She reports using Heroin IV 2.5 grams daily for 3 weeks. Last dose was 06/07/17. And Xanax PO 8 mg daily for 3 weeks. Last dose was 06/07/17. He is placed on 5 day Subutex and 5 day Ativan taper and tolerating well. Per endorsement, pt did not receive or request PRN medications. Pt is alert and oriented x4, breathing is even and unlabored. Safety measures in place. Will continue to monitor.
[2017-06-12 20:00] VITALS: BP 133/67
[2017-06-12] MEDS: KETOROLAC TROMETHAMINE 30 MG INJ IM PRN (20:57)
--- NOTE | 2017-06-12 20:57 | NUR ---
PRN TORADOL Pt complains of bilateral lower leg/back pain 07/08. PRN Toradol administered as ordered. Pt tolerated well. Safety measures in place. Will monitor effectiveness.
--- NOTE | 2017-06-12 21:57 | NUR ---
PRN TORADOL REASSESSMENt PRN medication effective. Pt reports pain decreased to 5/10. Breathing even and unlabored, safety measures in place. Will monitor
[2017-06-12] MEDS: QUETIAPINE FUMARATE 100 MG TABLET PO SCH (22:15)
[2017-06-12] MEDS: HYDROXYZINE PAMOATE 25 MG CAPSULE PO PRN (23:24)
--- NOTE | 2017-06-12 23:24 | NUR ---
PRN VISTARIL Pt complains of anxiety/restlessness. PRN Vistaril administered as ordered. Breathing even and unlabored, safety measures in place. Will monitor effectiveness.
[2017-06-13] VITALS: BP 122/69
--- NOTE | 2017-06-13 00:24 | NUR ---
PRN VISTARIL REASSESSMENT PRN medication effective. Pt noted to be more calm, lying comfortably in bed watching TV. Safety measures in place. Will continue to monitor.
--- NOTE | 2017-06-13 04:00 | NUR ---
VITALS REFUSED,COWS/CIWA DEFERRED 0400 vitals refused by pt. COWS and CIWA deferred d/t pt lying in bed with eyes closed noted to be asleep. Breathing even and unlabored, respirations 16, safety measures in place. Will continue to monitor.
--- NOTE | 2017-06-13 07:05 | NUR ---
Start of Shift Endorsement received from nightshift nurse. Pt is a 21 y/o male admitted for Heroin and Xanax dependence. Pt has been placed on a 5 day Ativan and 5 day Subutex taper. Pt is moderately withdrawing at this time AEB COWS 5, CIWA 4. Pt received PRN Toradol for lower back pain . Pt reports sleeping 7 hours. PT is alert and oriented x4. VS WNL. Full Code. Pt is in STABLE condition at this time. Remains compliant with medication and diet regimen. All needs have been met, All safety measures in place per hospital policy. Bed in lowest position, side rails up x2, call-light within reach. Will continue to monitor
--- NOTE | 2017-06-13 07:11 | NUR ---
END OF SHIFT Pt is a 21 year old male patient admitted on 06/08/17 for Opiate and Benzodiazepine dependency. Pt is full code with allergy to naloxone, and laundry detergent. Pt reports PMHx of anxiety, and depression. He continues on his 5 day Subutex and 5 day Ativan taper. He is currently on day 04/02 and tolerating well. At 2056 he received PRN Toradol, and 2323 he received PRN Vistaril. He slept a total of 5 hrs, Intake: 1550mL, Void:x3, BM:0 COWS:5 CIWA:4. Pt remains alert and oriented x4, breathing is even and unlabored. Safety measures in place. Endorsed to oncoming shift.
[2017-06-13 08:00] VITALS: BP 100/53
[2017-06-13] MEDS: GABAPENTIN 300 MG CAPSULE PO SCH ×3 (09:54→21:00)
[2017-06-13] MEDS: LORAZEPAM 1 MG TABLET PO SCH ×2 (09:54→20:59)
[2017-06-13] MEDS: MULTIVITAMINS,THERAPEUTIC TABLET PO SCH (09:54)
[2017-06-13] MEDS: BUPRENORPHINE HCL 2 MG TAB.SUBL SL SCH ×2 (09:54→21:00)
[2017-06-13] MEDS: CHOLECALCIFEROL 1,000 UNIT TABLET PO SCH (09:54)
[2017-06-13] MEDS: buPROPion XL 150 MG TAB.SR.24H PO SCH (09:54)
[2017-06-13] MEDS: BACLOFEN 20 MG TABLET PO SCH ×3 (09:54→21:00)
[2017-06-13] MEDS: LIDOCAINE 5% PATCH TD SCH ×2 (09:55)
[2017-06-13] MEDS: TENOFOVIR DISOPROXIL FUMARATE PO SCH (10:00)
[2017-06-13] MEDS: EMTRICITABINE PO SCH (10:00)
[2017-06-13 12:00] VITALS: BP 119/68
--- NOTE | 2017-06-13 15:00 | NUR ---
PRN Medication Administered PRN Toradol for 8/10 lower back pain. Will re-assess.
[2017-06-13] MEDS: KETOROLAC TROMETHAMINE 30 MG INJ IM PRN (15:02)
--- NOTE | 2017-06-13 15:15 | NUR ---
Medication re-assessment PT reports 03/08 at this time, down from 07/08. Medication was effective.
[2017-06-13 16:00] VITALS: BP 105/59
--- NOTE | 2017-06-13 19:02 | NUR ---
End of Shift Endorsement given to nightshift nurse. Pt is a 21 y/o male admitted for Heroin and Xanax dependence. Pt has been placed on a 5 day Ativan and 5 day Subutex taper. Pt is mildly withdrawing at this time AEB COWS 4, CIWA 3. Educated pt on diet regimen. Educated pt on a deep breathing technique to help relieve minor to moderate anxiety. Pt received PRN Toradol for severe lower back pain . Intake: 2500ml, Void x4, BM x1. VS WNL. Full Code. Pt is in STABLE condition at this time. Remains compliant with medication and diet regimen. All needs have been met, All safety measures in place per hospital policy. Bed in lowest position, side rails up x2, call-light within reach. Will continue to monitor
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
[2017-06-13 20:46] VITALS: BP 127/67
[2017-06-13] MEDS: QUETIAPINE FUMARATE 100 MG TABLET PO SCH (21:00)
[2017-06-14 00:10] VITALS: BP 113/59
[2017-06-14 04:52] VITALS: BP 111/67
--- NOTE | 2017-06-14 06:54 | NUR ---
End of Shift Patient is in bed sleeping. Breathing even and non labored. No signs of pain or discomfort noted. Patient is a 21 year old male admitted on 06/08/17 for Opiate and benzo Dependence. He is currently receiving a 5 day Subutex and 5 day Ativan taper. Patient is noted to be compliant with medications and plan of care as ordered. All needs attended to promptly. Will endorse to continue plan of care as ordered.
--- NOTE | 2017-06-14 07:05 | NUR ---
Start of Shift Endorsement received from nightshift nurse. Pt is a 21 y/o male admitted for Heroin and Xanax dependence. Pt has been placed on a 5 day Ativan and 5 day Subutex taper. Pt is mildly withdrawing at this time AEB COWS 3, CIWA 2. Pt did not receive any PRN medications . Pt reports sleeping 8 hours. Pt is expected to be complete both of his tapers today and be discharged on 06/15/17. Pt is reporting readiness for sobriety. PT is alert and oriented x4. VS WNL. Full Code. Pt is in STABLE condition at this time. Remains compliant with medication and diet regimen. All needs have been met, All safety measures in place per hospital policy. Bed in lowest position, side rails up x2, call-light within reach. Will continue to monitor
[2017-06-14 08:00] VITALS: BP 115/57
[2017-06-14] MEDS ORDERED: BUPRENORPHINE HCL 2 MG TAB.SUBL SL SCH (09:00)
[2017-06-14] MEDS: buPROPion XL 150 MG TAB.SR.24H PO SCH (09:20)
[2017-06-14] MEDS: GABAPENTIN 300 MG CAPSULE PO SCH ×3 (09:20→21:31)
[2017-06-14] MEDS: MULTIVITAMINS,THERAPEUTIC TABLET PO SCH (09:20)
[2017-06-14] MEDS: BACLOFEN 20 MG TABLET PO SCH ×3 (09:21→21:30)
[2017-06-14] MEDS: CHOLECALCIFEROL 1,000 UNIT TABLET PO SCH (09:21)
[2017-06-14] MEDS: EMTRICITABINE PO SCH (09:25)
[2017-06-14] MEDS: LIDOCAINE 5% PATCH TD SCH ×2 (09:25)
[2017-06-14] MEDS: TENOFOVIR DISOPROXIL FUMARATE PO SCH (09:25)
[2017-06-14 12:00] VITALS: BP 125/82
[2017-06-14 13:53] LABS: *AMPHETAMINE, URINE NEGATIVE (NEGATIVE); *BARBITURATE, URINE NEGATIVE (NEGATIVE); *CANNABINOID, URINE NEGATIVE (NEGATIVE); *COCCAINE, URINE NEGATIVE (NEGATIVE); *OPIATE, URINE NEGATIVE (NEGATIVE); *PHENCYCLIDINE SCREEN,URINE NEGATIVE (NEGATIVE)
[2017-06-14 16:00] VITALS: BP 121/76
[2017-06-14] MEDS ORDERED: DICY20TA28 PO (16:40)
[2017-06-14] MEDS ORDERED: BACL20TA PO (16:40)
[2017-06-14] MEDS ORDERED: LIDO30AD10 TD (16:40)
[2017-06-14] MEDS ORDERED: QUET100T PO (16:40)
[2017-06-14] MEDS ORDERED: IBUP-1955 PO (16:40)
--- NOTE | 2017-06-14 18:37 | NUR ---
End of Shift Endorsement given to nightshift nurse. Pt is a 21 y/o male admitted for Heroin and Xanax dependence. Pt has been placed on a 5 day Ativan and 5 day Subutex taper. Pt is mildly withdrawing at this time AEB COWS 2, CIWA 2. PT is expected to be discharged on 06/15/17. Provided discharge education for the pt. All discharge paperwork has been completed. Pt participated in groups and activities. Reports readiness for sobriety. PT did not receive any PRN medications . Intake: [id number], Void x5, BM x1. VS WNL. Full Code. Pt is in STABLE condition at this time. Remains compliant with medication and diet regimen. All needs have been met, All safety measures in place per hospital policy. Bed in lowest position, side rails up x2, call-light within reach. Will continue to monitor
--- NOTE | 2017-06-14 19:50 | NUR ---
START OF SHIFT Pt is a 21 y/o male admitted for Heroin and Xanax dependence. Pt was placed on a 5 day Ativan and 5 day Subutex taper. Tapers have been completed,Pt is scheduled for DC in the morning.Last COWS 3, CIWA 2. PT is alert and oriented x4. VS WNL. Full Code. Pt is in STABLE condition at this time. Remains compliant with medication and diet regimen. All needs have been met, All safety measures in place per hospital policy. Bed locked in lowest position, side rails up x2, call-light within reach. Will continue to monitor
[2017-06-14 20:00] VITALS: BP 125/82
[2017-06-14] MEDS: QUETIAPINE FUMARATE 100 MG TABLET PO SCH (21:30)
[2017-06-14] MEDS: KETOROLAC TROMETHAMINE 30 MG INJ IM PRN (21:57)
--- NOTE | 2017-06-14 22:00 | NUR ---
PRN MED PRN TORADOL IM GIVEN ORDERED FOR GENERALIZED BODY ACHE PER PT REQUEST.PAIN LEVEL=8/10.WILL MONITOR.
--- NOTE | 2017-06-14 23:00 | NUR ---
PRN F/U PT VERBALIZES RELIEF FROM PAIN.PRN EFFECTIVE.
--- NOTE | 2017-06-15 | NUR ---
VITALS REFUSED,COWS/CIWA DEFERRED PT IS FAST ASLEEP IN BED.NO S/S OF DISTRESS NOTED.BREATHING EVEN AND NONLABORED.REFUSED V/S.COWS/CIWA DEFERRED.
--- NOTE | 2017-06-15 04:00 | NUR ---
VITALS REFUSED,COWS/CIWA DEFERRED PT IS FAST ASLEEP IN BED.NO S/S OF DISTRESS NOTED.BREATHING EVEN AND NONLABORED.REFUSED V/S.COWS/CIWA DEFERRED.
--- NOTE | 2017-06-15 06:36 | NUR ---
END OF SHIFT Pt is a 21 y/o male admitted for Heroin and Xanax dependence. Pt was placed on a 5 day Ativan and 5 day Subutex taper. Tapers have been completed,Pt is scheduled for DC in the morning.Last COWS 2, CIWA 2. PT is alert and oriented x4. VS WNL. Full Code. Pt is in STABLE condition at this time. Remains compliant with medication and diet regimen.PRN Toradol given for pain with good effect.Pt slept 8 hrs,fluid intake was 740 mls,voided x 1. All needs have been met, All safety measures in place per hospital policy. Bed in lowest position, side rails up x2, call-light within reach. Will endorse care to day shift nurse.
--- NOTE | 2017-06-15 07:42 | NUR ---
START OF SHIFT Received report from night patrol inspector nurse. 21 year old male patient admitted on 06/08/17 for Heroin and Xanax withdrawals. Pt is A/O x4, and stable. Pt has completed 5 day Subutex and Ativan withdrawals and is scheduled for discharge . Reports hx of anxiety, depression. Pt remains compliant. Most recent CIWA and COWS scores are 2. V/S are stable. Pt slept for 7 hours. PRN Toradol was administered for pain. All needs met, safety precautions are in place, will continue to monitor.
[2017-06-15 08:06] VITALS: BP 126/81
[2017-06-15] MEDS: CHOLECALCIFEROL 1,000 UNIT TABLET PO SCH (08:49)
[2017-06-15] MEDS: BACLOFEN 20 MG TABLET PO SCH (08:49)
[2017-06-15] MEDS: MULTIVITAMINS,THERAPEUTIC TABLET PO SCH (08:49)
[2017-06-15] MEDS: buPROPion XL 150 MG TAB.SR.24H PO SCH (08:49)
[2017-06-15] MEDS: LIDOCAINE 5% PATCH TD SCH ×2 (08:49→09:12)
[2017-06-15] MEDS: EMTRICITABINE PO SCH (08:49)
[2017-06-15] MEDS: GABAPENTIN 300 MG CAPSULE PO SCH (08:49)
[2017-06-15] MEDS: TENOFOVIR DISOPROXIL FUMARATE PO SCH (08:49)
--- NOTE | 2017-06-15 10:20 | NUR ---
D/C NOTE Pt is A/O x4. V/S remain WNL. Pt denies SI/HI or hallucinations. Pt shows no s/s of acute withdrawal at this time, and is stable. MD has medically cleared pt for d/c . Education on Hepatitis C, smoking cessation and medication side effects provided. Pt verbalizes understanding. All pt belongings are in belonging bag, including prescriptions, including home medications. Refuses PNU vaccination. Pt is being accompanied by GROOVER OPERATOR at this time to be transported to rehab. All needs met.
== END 2017-06-15 10:20 | DRG 895 ==
LOC: SRC 21:35
PROVIDERS: ADMIT Internal Medicine; ATTEND Internal Medicine
PROC: HZ2ZZZZ Detoxification Services for Substance Abuse Treatment (ICD-10-PCS; principal; 2017-06-08)
PROC: HZ31ZZZ Individual Counseling for Substance Abuse Treatment, Behavioral (ICD-10-PCS; 2017-06-09)
PROC: HZ41ZZZ Group Counseling for Substance Abuse Treatment, Behavioral (ICD-10-PCS; 2017-06-10)
DX: F13.230 Sedative, hypnotic or anxiolytic dependence with withdrawal, uncomplicated (principal); F33.2 Major depressive disorder, recurrent severe without psychotic features; E87.3 Alkalosis; F11.23 Opioid dependence with withdrawal; E55.9 Vitamin D deficiency, unspecified; F41.9 Anxiety disorder, unspecified; Z79.899 Other long term (current) drug therapy; F12.90 Cannabis use, unspecified, uncomplicated; F17.210 Nicotine dependence, cigarettes, uncomplicated; D64.9 Anemia, unspecified; E86.0 Dehydration; G47.00 Insomnia, unspecified; Z91.419 Personal history of unspecified adult abuse; Z81.3 Family history of other psychoactive substance abuse and dependence; Z81.1 Family history of alcohol abuse and dependence
CPT/HCPCS: 36415; 70030-TC; 71010; 80307; 80345; 80346; 80349; 80361; 83735; 85025; 86592; 86705; 86803; 87340; 87806; G0480; J1885; Q0163